=== PATIENT | female | born 1930 | race Caucasian/White ===

== ENCOUNTER 2017-10-18 16:35 | Inpatient (IN) | payer MEDICARE, OTHER ==
[~2017-10-18 16:35] MED LIST: ISOVUE-370 76%-LOCM 1 ML ONE
[2017-10-18] MEDS ORDERED: MEROPENEM 1 GM/50 ML 1 GM in Premix Bag 1 BAG IVPB SCH (17:30)
[2017-10-18 17:35] LABS: #Lymphocytes 1.2 thou/uL (1.20-3.40); #Monocytes 0.7 thou/uL (0.11-0.59); #Neutrophils 7.9 thou/uL (1.40-6.50); %Basophils 0.3 % (0.0-1.0); %Eosinophils 0.5 % (0.0-10.0); %Monocytes 6.9 % (0.0-10.0); Mean Platelet Volume 7.8 fL (7.4-10.4); Red Blood Cell (RBC) Count 3.81 mill/uL (4.20-5.40); White Blood Cell (WBC) Count 9.8 thou/uL (4.8-10.8)
[2017-10-18 17:43] LABS: PTT 29.4 SEC (22.9-36.1); Prothrombin Time 13.5 SEC (12.0-14.7)
[2017-10-18 17:53] LABS: Lactic Acid - Sepsis 1.5 mmol/L (0.5-2.2)
[2017-10-18 17:57] LABS: ALT (SGPT) 10 U/L (8-55); AST (SGOT) 15 U/L (5-34); Alkaline Phosphatase 87 U/L (40-150); Anion Gap 11 mmol/L (10-20); BUN (Urea Nitrogen) 26 mg/dL (9.8-20.1); Bilirubin, Total 0.3 mg/dL (0.2-1.2); CK (CPK) 47 U/L (29-168); Calc. Creatinine Clearance 0 mL/min (70-130); Calcium 9.1 mg/dL (7.8-10.44); Carbon Dioxide 27 mmol/L (23-31); Chloride 104 mmol/L (98-107); Estimated GFR-MDRD 77; Globulin 3.4 g/dL (2.4-3.5); Protein, Total 7.2 g/dL (6.0-8.3)
[2017-10-18 18:01] LABS: Troponin I 0.049 ng/mL (< 0.028)
[2017-10-18] MEDS ORDERED: diphenhydrAMINE 50 MG CAP ONE (18:02)
[2017-10-18] MEDS ORDERED: Water For Inject, Bacteriostat 30 ML ONE (18:02)
[2017-10-18] MEDS ORDERED: methylPREDNISolone Sod Succ/PF 125 MG/2 ML VIAL ONE (18:02)
[2017-10-18] MEDS ORDERED: Famotidine/PF 20 mg/2ml Vial ONE (18:02)
[2017-10-18] MEDS ORDERED: diphenhydrAMINE 50 MG/ML VIAL ONE (18:03)
[2017-10-18 18:05] LABS: Bilirubin Negative (Negative); Blood, Urine Large (Negative); Glucose, Urine (Dipstick) Negative (Negative); Ketone, Urine Negative (Negative); Nitrite Negative (Negative); Protein, Urine (Dipstick) 100 mg/dL (Neg-Trace); Urobilinogen 0.2 mg/dL (0.2-1.0)
[2017-10-18 18:11] LABS: Bacteria/HPF 1+ HPF (None Seen); Hyaline Casts/LPF 0-3 HYALINE CAST LPF (0-3 Hyaline); RBC/HPF GREATER THAN 50-TNTC HPF (0-3); Squamous Epithelial 0-3 HPF (0-3)
[2017-10-18] MEDS ORDERED: Acetaminophen 500 MG TAB ONE (19:14)
[2017-10-18] MEDS ORDERED: Acetaminophen 650 MG Suppository ONE (19:22)
[2017-10-18] MEDS ORDERED: Acetaminophen 325 MG TAB PO PRN (19:45)
[2017-10-18] MEDS ORDERED: Acetaminophen 650 MG Suppository PR PRN (19:45)
[2017-10-18] MEDS ORDERED: Ondansetron HCl/PF 4 MG/2 ML Vial IVP PRN (19:45)
[2017-10-18] MEDS ORDERED: metroNIDAZOLE 500 MG/100 ML BAG ONE (20:07)
--- NOTE | 2017-10-18 20:12 | RAD ---
PORTABLE UPRIGHT FRONTAL CHEST RADIOGRAPH 10/18/17 COMPARISON: 11/05/16. HISTORY: Choking on coffee a few days ago, productive cough. FINDINGS: No pneumothorax, pleural fluid, lobar consolidation, or alveolar edema. Heart and mediastinal contour s are stable. The lungs appear hyperinflated with diffuse increased linear interstitial density, unch anged. IMPRESSION: Chronic findings as detailed above. No lobar consolidation, or alveolar edema. POS: [facility]
[2017-10-18 20:27] LABS: Hematocrit 30.7 % (36.0-47.0)
[2017-10-18 20:50] LABS: Troponin I 0.055 ng/mL (< 0.028)
--- NOTE | 2017-10-18 21:19 | HP ---
PRIMARY CARE PHYSICIAN: Dr. Loki Solano. CHIEF COMPLAINT: Cough. HISTORY OF PRESENT ILLNESS: Ms. Adams is a pleasant 86-year-old lady who was seen at [facility] on 10/18/2017. The patient is able to provide most of the history. Additional history was obtained from discussion with the patient's daughter over the telephone, discussion with the emergency room physician and review of medical records. Ms. Adams was last hospitalized at this facility in 10/2016. At that time, she was a resident of [facility]. According to her daughter, she has been living at home over the last several months. Her daughter is the care provider. She has hospital bed at home. She appears to have been doing relatively well at home. Two days ago, she was trying to drink coffee through a straw, when she had an episode of choking. Since then, she has had a cough that is productive of light yellow sputum. There were no fevers at home, although the patient had a temperature of 102 degrees Fahrenheit in the emergency room. The patient denies any dysuria. She denies any chest pain. She reports cough. She denies any nausea or vomiting. She denies any abdominal pain. She denies any diarrhea. The patient's daughter reports that she has been wheezing occasionally. REVIEW OF SYSTEMS: The following complete review of systems was negative, unless otherwise mentioned in the HPI or below: Constitutional: Weight loss or gain, sense of well-being, ability to conduct usual activities, exercise tolerance. Skin/Breast: Rash, itching, changes in hair growth or loss, nail changes, breast lumps, tenderness, swelling, nipple discharge. Eyes: Vision, double vision, tearing, blind spots, pain. ENT/Mouth: Headaches (location, time of onset, duration, precipitating factors) , vertigo, lightheadedness, injury. Vision, double vision, tearing, blind spots , pain, nose bleeding, colds, obstruction, discharge, dental difficulties, gingival bleeding, dentures, neck stiffness, pain, tenderness, masses in thyroid or other areas. Cardiovascular: Precordial pain, substernal distress, palpitations, syncope, dyspnea on exertion, orthopnea, nocturnal paroxysmal dyspnea, edema, cyanosis, hypertension, heart murmurs, varicosities, phlebitis, claudication. Respiratory: Pain, shortness of breath, wheezing, stridor, cough, hemoptysis, fever or night sweats. Gastrointestinal: Poor appetite, dysphagia, indigestion, abdominal pain, heartburn, eructation, nausea, vomiting, hematemesis, jaundice, constipation, or diarrhea, abnormal stools (gillian-colored, tarry, bloody, greasy, foul smelling ), flatulence, hemorrhoids, recent changes in bowel habits. Genitourinary: Urgency, frequency, dysuria, nocturia, hematuria, polyuria, oliguria, unusual (or change in) color of urine, stones, hesitancy, change in size of stream, dribbling, acute retention or incontinence, libido, potency. Musculoskeletal: Pain, swelling, redness or heat of muscles or joints, limitation, of motion, muscular weakness, atrophy, cramps. Neurologic/Psychiatric: Convulsions, paralyses, tremor, incoordination, parasthesias, difficulties with memory of speech, sensory or motor disturbances , or muscular coordination (ataxia, tremor), emotional problems, anxiety, depression, previous psychiatric care, unusual perceptions, hallucinations. Allergy/Immunologic: Skin rash, anemia, bleeding tendency, polydipsia, polyuria , intolerance to heat or cold. PAST MEDICAL HISTORY: Significant for hypertension, asthma, depression, involuntary tremor, gastroesophageal reflux disease, irritable bowel syndrome, chronic back pain, gastritis, left hip fracture, atrial fibrillation and cachexia. PAST SURGICAL HISTORY: Significant for hysterectomy, back surgery, left hip surgery. PSYCHIATRIC HISTORY: Significant for anxiety and depression. FAMILY HISTORY: Her father had colon cancer. ALLERGIES: She is allergic to CODEINE, IODINE, LEVOFLOXACIN, MEPERIDINE, MORPHINE, PENICILLIN, SULFA and IV CONTRAST. She does not recall what the to PENICILLIN was. She reports that the allergy to CONTRAST was a headache. CURRENT MEDICATIONS: Abilify 15 mg daily, clonazepam 0.5 mg every 4 hours as needed, potassium chloride 10 mEq daily, Topamax 50 mg 2 times a day, paroxetine 30 mg daily, irbesartan 300 mg daily. CODE STATUS: I discussed her code status. She is DNR. PHYSICAL EXAMINATION: GENERAL: Ms. King is awake and alert, not in acute distress. She appears frail. VITAL SIGNS: Blood pressure is 149/73. Pulse is 114. She has a rectal temperature of 101 degrees Fahrenheit. She is breathing at rate of 20 and saturating 96% on 2 liters of oxygen. EYES: She is opening her left eye wider than her right. She reports that this is chronic. She also reports diminished vision in both eyes. No scleral icterus. No conjunctival pallor. ENT: Dry mucosal membranes, no oropharyngeal erythema or exudates. NECK: Supple, nontender, normal range of movement. Trachea is midline. RESPIRATORY: Accessory muscles of breathing are not active. Chest wall movements are symmetric bilaterally. LUNGS: Revealed occasional expiratory wheeze. CARDIOVASCULAR: S1 and S2 are heard, tachycardic and regular. Peripheral pulses are palpable. No carotid bruit, no pericardial rub. ABDOMEN: Soft, nontender, bowel sounds heard, no hepatomegaly, no splenomegaly. NEUROLOGIC: Cranial nerves II-XII are intact. Deep tendon reflexes are 2+. MUSCULOSKELETAL: Power is 4+/5 in all 4 extremities. She is keeping her ankles plantar flexed. SKIN: No rashes or subcutaneous nodules. LYMPHATIC: No cervical lymphadenopathy. PSYCHIATRIC: Normal mood, normal affect, the patient is oriented to person and place, not to time. LABORATORY DATA: Ms. Adams labs and investigations were reviewed. I reviewed her electrocardiogram, which shows normal sinus rhythm, no ST changes to suggest an acute coronary syndrome. I also reviewed her chest x-ray, which does not show any pulmonary infiltrates. She has a normal white count, normocytic anemia with hemoglobin 10.8, normal platelet count, INR 1.0, elevated D-dimer of 0.61, normal electrolytes, elevated blood urea nitrogen of 26, normal creatinine, normal lactic acid, normal liver profile, indeterminate troponin I of 0.049 and urinalysis positive for protein, blood, and leukocyte esterase. ASSESSMENT AND PLAN: Ms. Adams is a pleasant 86-year-old lady who was seen at [facility] on 10/18/2017. Her problem list includes: 1. Sepsis: Ms. Adams is presenting to the emergency room with sepsis, suspected sources of infection. Urinary tract infection and aspiration. Having said that, she was also noted to have blood in her diaper, colitis is a consideration as well. 2. Urinary tract infection. The patient has already received a dose of meropenem. Given her allergy profile, we will continue her on meropenem. Low risk of cross reactivity given her PENICILLIN allergy has been discussed with the patient and daughter. Both of them are agreeable to proceed. 3. Aspiration: Suspected, based on history. I will continue meropenem, add azithromycin. Given the possibility of bacteremia as well as contributed to her sepsis, we will continue vancomycin, which has already been started. We will follow blood cultures. 4. Gastrointestinal bleed: The patient had blood in her diaper. Gastroenterology Service has been consulted by emergency room physician. She is currently awaiting CT abdomen to rule out any acute intraabdominal processes. 5. Dehydration: The patient is clinically dehydrated: We will continue her on intravenous fluids. 6. Protein calorie malnutrition, moderate to severe: Consult dietitian. 7. Hypertension: Monitor vital signs, titrate antihypertensives as needed. 8. Involuntary tremor: Stable. 9. History of atrial fibrillation. The patient is currently in normal sinus rhythm. 10. Elevated D-dimer: She is currently awaiting CT angiogram of the chest to rule out pulmonary embolism. 11> Indeterminate troponin: likely due to sepsis, pt denies chest pain, will trend. Many thanks for allowing me to participate in your patient's care. Please feel free to contact me with any questions or concerns. LEVEL OF RISK: High. LEVEL OF COMPLEXITY: High. MTDD
[2017-10-18] MEDS: Azithromycin 500 MG in Sodium Chloride 0.9% 250 ML 250 ML IVPB SCH (22:06)
[2017-10-18] MEDS: Sodium Chloride 0.9% 1,000 ML IV SCH (22:06)
--- NOTE | 2017-10-18 23:18 | CT ---
CT OF ABDOMEN AND PELVIS 10/18/17 COMPARISON: None. HISTORY: Cough, GI bleeding, tremors. TECHNIQUE: Serial axial CT imaging is obtained at 5 mm intervals from lung bases through pubic symphysis with IV contrast. Coronal reformatted imaging obtained. FINDINGS: The imaged lung bases are unremarkable. The liver demonstrates a calcified lesion within the lateral aspect of the left lobe measuring approx imately 1.7 cm, nonspecific and unchanged when compared to study dating back to 06/06/15. The liver and gallbladder are otherwise grossly unremarkable. There is fluid within a mildly prominen t stomach. The gallbladder and pancreas are grossly unremarkable. No evidence for hydronephrosis is s een on either side. Bilateral adrenal glands are unremarkable as is the left kidney. The right kidney contains a large staghorn calculus involving upper mid and lower pole as well as favian al hilum, measuring up to 3.9 cm in transverse dimension x 4.9 cm in craniocaudal dimension. The patient's body habitus and the lack of oral contrast limit assessment of the bowel. The rectums is expanded and filled with stool, which suggest a degree of fecal impaction. There is si gnificant stool seen elsewhere within the colon, primarily the distal colon. No evidence for focal bowel inflammatory change or obstruction. Vascular structures of abdomen and pe lvis demonstrate extensive atherosclerotic calcification of the abdominal aorta and its branches. There is postoperative hardware associated with the proximal left femur, associated streak artifact l imiting detailed assessment. The bones are markedly demineralized. There is multilevel lower lumbar spine bilateral laminectomy change. Motion artifact limits assessment of the acetabulum/iliac bone on the right. IMPRESSION: 1. Mildly prominent fluid filled stomach. No evidence for small bowel obstruction. 2. The rectum is expanded and filled with stool, suggesting fecal impaction. 3. Atherosclerotic disease. 4. Large right renal staghorn calculus. POS: [facility]
--- NOTE | 2017-10-18 23:22 | CT ---
CT ANGIOGRAM OF THE CHEST 10/18/17 COMPARISON: 08/18/16 HISTORY: Productive cough, possible aspiration. TECHNIQUE: Serial axial CT imaging at 2.5 mm intervals from the thoracic inlet through the upper abdomen with IV contrast using a CT angiogram protocol. Coronal and oblique sagittal 3D reformatted imaging obtained . FINDINGS: Imaged portions of the great vessels demonstrate marked tortuosity. No axillary, mediastinal, or hilar lymphadenopathy. There is adequate opacification of the pulmonary arterial vasculature. There is no evidence for acute pulmonary embolism. No pneumothorax is evident o n either side. No evidence for air space disease or focal consolidation. Coronary arterial calcificat ion noted. No endobronchial lesion is evident. The bones are demineralized. There is an old proximal humeral fracture on the left. Age indeterminate anterior wedge compression fracture of T7 and T5 note d with severe vertebral body height loss. IMPRESSION: No evidence for pulmonary embolism. POS: [facility]
[2017-10-18 23:37] LABS: Troponin I 0.054 ng/mL (< 0.028)
[2017-10-19] MEDS: MEROPENEM 1 GM/50 ML 1 GM in Premix Bag 1 BAG IVPB SCH ×3 (03:29→17:45)
[2017-10-19 05:17] LABS: #Lymphocytes 1.1 thou/uL (1.20-3.40); #Monocytes 0.4 thou/uL (0.11-0.59); #Neutrophils 3.6 thou/uL (1.40-6.50); %Basophils 0.1 % (0.0-1.0); %Eosinophils 0.4 % (0.0-10.0); %Lymphocytes 21.5 % (21.0-51.0); Hematocrit 30.3 % (36.0-47.0); Mean Platelet Volume 7.8 fL (7.4-10.4); Red Blood Cell (RBC) Count 3.31 mill/uL (4.20-5.40)
[2017-10-19 06:20] LABS: Anion Gap 8 mmol/L (10-20); BUN (Urea Nitrogen) 22 mg/dL (9.8-20.1); Calc. Creatinine Clearance 39 mL/min (70-130); Calcium 8.5 mg/dL (7.8-10.44); Carbon Dioxide 25 mmol/L (23-31); Chloride 111 mmol/L (98-107); Estimated GFR-MDRD 88
[2017-10-19] MEDS ORDERED: FLU VACC TS2017-18 (>65YR) 0.5 ML SYRINGE IM ONE (09:00)
[2017-10-19] MEDS ORDERED: Enoxaparin Sodium 40 MG/0.4 ML SYRINGE SC SCH (09:00)
--- NOTE | 2017-10-19 10:08 | PDOC.PN ---
- Subjective Encounter Start Date: 10/19/17 Encounter Start Time: 07:40 Pt seen for followup re: sepsis. Cough+ Feels weak. - Objective Resuscitation Status: Resuscitation Status DNR:Do Not Resuscitate MAR Reviewed: Yes Vital Signs & Weight: Vital Signs (12 hours) Temp Pulse Resp BP Pulse Ox 10/19/17 03:38 98.6 F 68 16 146/74 H 10/18/17 23:57 97.6 F 73 18 135/62 98 Weight Weight 86 lb Result Diagrams: 10/19/17 04:23 10/19/17 04:23 EKG Reviewed by me: Yes (Tele: NSR) Phys Exam - Physical Examination appears malnourished HEENT: PERRLA, moist MMs, sclera anicteric, oral pharynx no lesions Neck: no nodes, no JVD, supple, full ROM Respiratory: clear to auscultation bilateral Cardiovascular: RRR, no rub Gastrointestinal: soft, non-tender, no distention, positive bowel sounds Musculoskeletal: pulses present Neurological: moves all 4 limbs Lymphatic: no nodes Psychiatric: normal affect Deviation from normal: Oriented to person and place, not to time Skin: no rash, normal turgor, cap refill <2 seconds Deviation from normal: Stg III sacral ulcer Dx/Plan (1) Sepsis Code(s): A41.9 - SEPSIS, UNSPECIFIED ORGANISM Status: Acute (2) UTI (urinary tract infection) Status: Acute (3) Aspiration pneumonia Code(s): J69.0 - PNEUMONITIS DUE TO INHALATION OF FOOD AND VOMIT Status: Acute (4) Rectal bleed Code(s): K62.5 - HEMORRHAGE OF ANUS AND RECTUM Status: Acute (5) Sacral decubitus ulcer, stage III Code(s): L89.153 - PRESSURE ULCER OF SACRAL REGION, STAGE 3 Status: Chronic (6) CAD (coronary artery disease) Code(s): I25.10 - ATHSCL HEART DISEASE OF [place] CORONARY ARTERY W/O ANG PCTRS Status: Chronic (7) Dementia Code(s): F03.90 - UNSPECIFIED DEMENTIA WITHOUT BEHAVIORAL DISTURBANCE Status: Chronic (8) Protein-calorie malnutrition, severe Code(s): E43 - UNSPECIFIED SEVERE PROTEIN-CALORIE MALNUTRITION Status: Chronic (9) Paroxysmal atrial fibrillation Code(s): I48.0 - PAROXYSMAL ATRIAL FIBRILLATION Status: Resolved - Plan continue antibiotics, PT/OT, speech therapy, out of bed/ambulate, DVT proph w/ SCDs * . Continue IV meropenem, IV vancomycin and IV azithromycin. Follow cultures. Hemoglobin stable. Diet consistency as per speech therapy. Review of Systems - Review of Systems Constitutional: Weakness. negative: Fever, Chills, Sweats, Malaise Respiratory: Cough, Sputum. negative: Dry, Shortness of Breath, Hemoptysis, SOB with Excertion, Pleuritic Pain, Wheezing Cardiovascular: negative: Chest Pain, Palpitations, Orthopnea, Paroxysmal Noc. Dyspnea, Edema, Light Headedness Gastrointestinal: Hematochezia. negative: Nausea, Vomiting, Abdominal Pain, Diarrhea, Constipation, Melena Genitourinary: negative: Dysuria, Frequency, Incontinence, Hematuria, Retention - Medications/Allergies Allergies/Adverse Reactions: Allergies Allergy/AdvReac Type Severity Reaction Status Date / Time codeine Allergy Verified 10/18/17 22:06 iodine Allergy Verified 10/18/17 22:06 levofloxacin Allergy Verified 10/18/17 22:06 meperidine HCl [From Demerol] Allergy Verified 10/18/17 22:06 morphine Allergy Verified 10/18/17 22:06 Penicillins Allergy Verified 10/18/17 22:06 Sulfa (Sulfonamide Allergy Verified 10/18/17 22:06 Antibiotics) Medications: Current Medications Acetaminophen (Tylenol) 650 mg PO Q4H PRN PRN Reason: Headache/Fever or Pain Acetaminophen (Tylenol) 650 mg [place] Q4H PRN PRN Reason: Headache/Fever or Pain Meropenem 1 gm/ Device 50 mls @ 100 mls/hr IVPB 0200,1000,1800 [facility] Last Admin: 10/19/17 09:00 Dose: 50 mls Azithromycin 500 mg/ Sodium (Chloride) 250 mls @ 250 mls/hr IVPB 2030 [facility] Last Admin: 10/18/17 22:06 Dose: 250 mls Vancomycin HCl 500 mg/ Sodium (Chloride) 100 mls @ 200 mls/hr IVPB 2000 [facility] Sodium Chloride (Normal Saline 0.9%) 1,000 mls @ 50 mls/hr IV .Q20H [facility] Last Admin: 10/18/17 22:06 Dose: 1,000 mls Miscellaneous Medication (Pharmacy To Dose) 1 each IVPB PRN PRN PRN Reason: Pharmacy to dose Ondansetron HCl (Zofran) 4 mg IVP Q6H PRN PRN Reason: Nausea/Vomiting
[2017-10-19] MEDS: Sodium Chloride 0.9% 1,000 ML IV SCH (17:37)
[2017-10-19] MEDS: Vancomycin HCl 500 MG in Sodium Chloride 0.9% 100 ML IVPB SCH (20:28)
[2017-10-19] MEDS: Azithromycin 500 MG in Sodium Chloride 0.9% 250 ML 250 ML IVPB SCH (20:34)
--- NOTE | 2017-10-20 00:55 | CON ---
DATE OF CONSULTATION: 10/19/2017 REFERRING PHYSICIAN: Dr. Linden Maher. REASON FOR CONSULTATION: Hematochezia. HISTORY OF PRESENT ILLNESS: Ms. Zandra Adams is a very pleasant 86-year-old female hospi talized by Dr. Linden Maher for what appears to be aspiration. Apparently, she was drinking some coff ee at home and she started coughing and choking. The patient also had some yellowish sputum subseque ntly. There were no history of fever or chills. The patient had no similar episodes. The patient h as no dyspnea, orthopnea or PND. She had no similar episodes of in the past. The patient was admitt ed to the hospital because of what appears to be as patient had sepsis. She also appears to have UTI . She is on IV antibiotics at the present time. The patient had an episode of hematochezia last nig ht as per the nurses. The bleeding appears very mild. Today, she has no recurrence of bleeding. He r blood count really did not drop down that much, although she has a history of hematochezia. On adm ission, the WBC was 9800, hemoglobin 10.8 and hematocrit 34. Today, the hemoglobin is 9.4, hematocri t 30.3. The patient denies any abdominal pain. No nausea, no vomiting. There is no prior history o f GI bleeding. The patient does not recall having any colonoscopy or any GI workup in the past. The re is no family available at the present time. As per the admitting history and physical, the patien t is DNR. At the present time, the patient denies any abdominal pain, any dysphagia or odynophagia. No history of heartburn. She has no other relevant history. ALLERGIES: Numerous allergies, which from the admitting history and physical by Dr. Linden Maher. Sh e is allergic to CODEINE, IODINE, LEVOFLOXACIN, MEPERIDINE. Allergic also to PENICILLIN, MORPHINE, S ULFA and IV CONTRAST. SOCIAL HISTORY: There is no history of smoking or any alcohol intake. PAST MEDICAL ILLNESSES: 1. Hypertension. 2. Asthma. 3. Depression. 4. Involuntary tremors. 5. Gastroesophageal reflux disease. 6. IBS. 7. Chronic back pain. 8. Gastritis. 9. Left hip fracture. 10. Atrial fibrillation. 11. Cachexia. PAST SURGICAL HISTORY: Hysterectomy, back surgery and left hip surgery. FAMILY HISTORY: Father had colon cancer. MEDICATIONS: List reviewed, which include Abilify, clonazepam, potassium chloride, Topamax, Paxil an d irbesartan 300 mg once a day. REVIEW OF SYSTEMS: Central Nervous System: No history of TIA, no chronic headache, no dizziness, no syncope. Respiratory System: Recent coughing, choking and spitting up yellowish sputum. No dyspne a, no hemoptysis. Cardiovascular System: No chest pain, no palpitation, no dyspnea, orthopnea or PN D. Gastrointestinal: No abdominal pain, nausea or vomiting. Genitourinary: No dysuria, hematuria or frequent urination. Musculoskeletal: She has some back pain and arthralgias. Neuropsychiatric: No depression, but does have a history of anxiety. PHYSICAL EXAMINATION: GENERAL: Reveals a very fragile-looking, elderly white female, who appears very comfortable, but she has severe tremors in the upper extremities. She also has tremors of the head and neck. She appear s comfortable. VITAL SIGNS: Stable. Temperature 98.4 degrees Fahrenheit, pulse is 79 and blood pressure 156/66. HEENT: Conjunctivae clear. NECK: Supple. No adenitis or thyromegaly noted. CARDIOVASCULAR SYSTEM: First and second heart sounds are normal. LUNGS: Clear to auscultation. ABDOMEN: Soft to palpate. Abdomen is nondistended. Abdomen is nontender. There is no organomegaly or masses. EXTREMITIES: Reveal no edema. LABORATORY DATA: Shows mild anemia without much drop in blood count after hematochezia. The hemoglo bin was 10.2 dropping to 9.4, hematocrit 30.3, MCV 91.4, platelet count 199,000, polymorphs 71 and ly mphocytes 21. Serum chemistries: Sodium 140, potassium 4.1, chloride 111, bicarbonate 25, BUN is 22 , creatinine 0.64, glucose 118 and calcium 8.5. She had a chest x-ray, inflated lungs lopez with di ffuse appears more chronic in nature. CLINICAL IMPRESSION: 1. Hematochezia with no active bleeding seen at the present time. She had one episode of bleeding y esterday. She has had no more bleeding. Her abdomen is very benign. Unfortunately, no family membe r available to see whether they want to have any invasive procedures. The patient actually wants me to talk to the family before she decides on treatment. In the meantime, I would recommend serial hem oglobin and hematocrit. 2. Transfuse p.r.n. 3. We will discuss with family and decide whether they want to proceed with colonoscopy.
[2017-10-20] MEDS: MEROPENEM 1 GM/50 ML 1 GM in Premix Bag 1 BAG IVPB SCH ×3 (01:28→17:18)
[2017-10-20 05:17] LABS: #Basophils 0.1 thou/uL (0.0-0.2); #Eosinphils 0.2 thou/uL (0.0-0.7); #Lymphocytes 2.2 thou/uL (1.20-3.40); #Monocytes 0.7 thou/uL (0.11-0.59); #Neutrophils 4.3 thou/uL (1.40-6.50); %Basophils 0.7 % (0.0-1.0); %Eosinophils 2.8 % (0.0-10.0); %Lymphocytes 30.1 % (21.0-51.0); Hematocrit 30.3 % (36.0-47.0); Mean Platelet Volume 7.8 fL (7.4-10.4); Red Blood Cell (RBC) Count 3.33 mill/uL (4.20-5.40); White Blood Cell (WBC) Count 7.4 thou/uL (4.8-10.8)
[2017-10-20 05:34] LABS: Anion Gap 8 mmol/L (10-20); BUN (Urea Nitrogen) 21 mg/dL (9.8-20.1); Calc. Creatinine Clearance 43 mL/min (70-130); Calcium 8.1 mg/dL (7.8-10.44); Carbon Dioxide 29 mmol/L (23-31); Chloride 108 mmol/L (98-107); Estimated GFR-MDRD Greater than 90
--- NOTE | 2017-10-20 10:07 | PDOC.PN ---
- Subjective Encounter Start Date: 10/20/17 Encounter Start Time: 07:20 Pt seen for followup re: Proteus mirabilis UTI. Denies chest pain or shortness fo breath. feels better. - Objective Resuscitation Status: Resuscitation Status DNR:Do Not Resuscitate MAR Reviewed: Yes Vital Signs & Weight: Vital Signs (12 hours) Temp Pulse Resp BP Pulse Ox 10/20/17 04:00 99.0 F 75 18 151/70 H 99 Weight Admit Weight 86 lb Weight 86 lb I&O: 10/19/17 10/20/17 10/21/17 06:59 06:59 06:59 Intake Total 1546 Balance 1546 Result Diagrams: 10/20/17 04:30 10/20/17 04:30 EKG Reviewed by me: Yes (Tele: NSR) Phys Exam - Physical Examination Constitutional: NAD HEENT: moist MMs, oral pharynx no lesions Neck: supple Respiratory: no wheezing, no rales, no rhonchi, clear to auscultation bilateral Cardiovascular: RRR, no rub Gastrointestinal: soft, non-tender, no distention, positive bowel sounds Musculoskeletal: pulses present Neurological: moves all 4 limbs Tremor Lymphatic: no nodes Psychiatric: normal affect Deviation from normal: Oriented to person and place, not to time Skin: no rash, normal turgor, cap refill <2 seconds Deviation from normal: Stg III sacral decub ulcer Dx/Plan (1) Urinary tract infection due to Proteus Code(s): N39.0 - URINARY TRACT INFECTION, SITE NOT SPECIFIED; B96.4 - PROTEUS ( MIRABILIS) (MORGANII) CAUSING DIS CLASSD ELSWHR Status: Acute (2) Aspiration pneumonia Code(s): J69.0 - PNEUMONITIS DUE TO INHALATION OF FOOD AND VOMIT Status: Suspected (3) Rectal bleed Code(s): K62.5 - HEMORRHAGE OF ANUS AND RECTUM Status: Acute (4) Sacral decubitus ulcer, stage III Code(s): L89.153 - PRESSURE ULCER OF SACRAL REGION, STAGE 3 Status: Chronic (5) CAD (coronary artery disease) Code(s): I25.10 - ATHSCL HEART DISEASE OF [place] CORONARY ARTERY W/O ANG PCTRS Status: Chronic (6) Dementia Code(s): F03.90 - UNSPECIFIED DEMENTIA WITHOUT BEHAVIORAL DISTURBANCE Status: Chronic (7) Protein-calorie malnutrition, severe Code(s): E43 - UNSPECIFIED SEVERE PROTEIN-CALORIE MALNUTRITION Status: Chronic (8) Paroxysmal atrial fibrillation Code(s): I48.0 - PAROXYSMAL ATRIAL FIBRILLATION Status: Resolved (9) Sepsis Code(s): A41.9 - SEPSIS, UNSPECIFIED ORGANISM Status: Resolved - Plan continue antibiotics, PT/OT, speech therapy, out of bed/ambulate * . Continue meropenem for now, given pt's drug allergies. Monitor vital signs, titrate antihypertensives as needed. Appreciate GI service input. Monitor hemoglobin. Review of Systems - Review of Systems Constitutional: negative: Fever, Chills, Sweats, Weakness, Malaise Respiratory: negative: Cough, Dry, Shortness of Breath, Hemoptysis, SOB with Excertion, Pleuritic Pain, Sputum, Wheezing Cardiovascular: negative: Chest Pain, Palpitations, Orthopnea, Paroxysmal Noc. Dyspnea, Edema, Light Headedness Gastrointestinal: negative: Nausea, Vomiting, Abdominal Pain, Diarrhea, Constipation, Melena, Hematochezia Genitourinary: negative: Dysuria, Frequency, Incontinence, Hematuria, Retention - Medications/Allergies Allergies/Adverse Reactions: Allergies Allergy/AdvReac Type Severity Reaction Status Date / Time codeine Allergy Verified 10/18/17 22:06 iodine Allergy Verified 10/18/17 22:06 levofloxacin Allergy Verified 10/18/17 22:06 meperidine HCl [From Demerol] Allergy Verified 10/18/17 22:06 morphine Allergy Verified 10/18/17 22:06 Penicillins Allergy Verified 10/18/17 22:06 Sulfa (Sulfonamide Allergy Verified 10/18/17 22:06 Antibiotics) Medications: Current Medications Acetaminophen (Tylenol) 650 mg PO Q4H PRN PRN Reason: Headache/Fever or Pain Acetaminophen (Tylenol) 650 mg [place] Q4H PRN PRN Reason: Headache/Fever or Pain Meropenem 1 gm/ Device 50 mls @ 100 mls/hr IVPB 0200,1000,1800 [facility] Last Admin: 10/20/17 09:15 Dose: 50 mls Azithromycin 500 mg/ Sodium (Chloride) 250 mls @ 250 mls/hr IVPB 2030 [facility] Last Admin: 10/19/17 20:34 Dose: 250 mls Vancomycin HCl 500 mg/ Sodium (Chloride) 100 mls @ 200 mls/hr IVPB 2000 [facility] Last Admin: 10/19/17 20:28 Dose: 100 mls Sodium Chloride (Normal Saline 0.9%) 1,000 mls @ 50 mls/hr IV .Q20H [facility] Last Admin: 10/19/17 17:37 Dose: 1,000 mls Miscellaneous Medication (Pharmacy To Dose) 1 each IVPB PRN PRN PRN Reason: Pharmacy to dose Ondansetron HCl (Zofran) 4 mg IVP Q6H PRN PRN Reason: Nausea/Vomiting
[2017-10-20] MEDS: Sodium Chloride 0.9% 1,000 ML IV SCH (11:42)
[2017-10-20] MEDS ORDERED: ALPRAZolam 0.25 MG TAB PO SCH (14:30)
--- NOTE | 2017-10-20 15:37 | PRG ---
DATE OF SERVICE: 10/20/2017 HOSPITAL VISIT NOTE SUBJECTIVE: This is an 86-year-old female seen because of hematochezia. The patient had a stool this morning. As per the nurses, the stool was firm. There is a small amount of blood seen o n the side of stool. The patient has had hemorrhoids. She denies abdominal pain, nausea or vomiting . At the time during the rectal exam, she had a very large soft stool and the stool was actually daniel e of any blood. PHYSICAL EXAMINATION: VITAL SIGNS: Afebrile, pulse 99, blood pressure 176/76. CARDIOVASCULAR: Lungs within normal limits. ABDOMEN: Soft to palpate. No organomegaly. No tenderness. No masses. LABORATORY DATA: From today, no drop in hemoglobin; it remains pretty stable around 9.7-9.4, hematoc rit 30.3. CLINICAL IMPRESSION: Rectal bleeding, mostly hemorrhoidal as the patient had a large stool this morn ing and the stool actually has no blood. Unfortunately, there is no family available to talk to them . If I talk to family, will decide if they want to proceed with any further studies.
[2017-10-20 19:37] LABS: Vancomycin, Trough 4.2 ug/mL
[2017-10-20] MEDS: Vancomycin HCl 500 MG in Sodium Chloride 0.9% 100 ML IVPB SCH (20:29)
[2017-10-20] MEDS: Azithromycin 500 MG in Sodium Chloride 0.9% 250 ML 250 ML IVPB SCH (21:29)
[2017-10-21] MEDS: MEROPENEM 1 GM/50 ML 1 GM in Premix Bag 1 BAG IVPB SCH ×3 (01:32→18:54)
[2017-10-21 05:48] LABS: #Eosinphils 0.2 thou/uL (0.0-0.7); #Lymphocytes 1.8 thou/uL (1.20-3.40); #Monocytes 0.5 thou/uL (0.11-0.59); #Neutrophils 4.5 thou/uL (1.40-6.50); %Basophils 0.5 % (0.0-1.0); %Eosinophils 2.8 % (0.0-10.0); %Lymphocytes 25.2 % (21.0-51.0); %Monocytes 7.6 % (0.0-10.0); Hematocrit 31.5 % (36.0-47.0); Mean Platelet Volume 8.6 fL (7.4-10.4); Red Blood Cell (RBC) Count 3.51 mill/uL (4.20-5.40)
[2017-10-21 06:10] LABS: Anion Gap 10 mmol/L (10-20); BUN (Urea Nitrogen) 11 mg/dL (9.8-20.1); Calc. Creatinine Clearance 48 mL/min (70-130); Calcium 8.3 mg/dL (7.8-10.44); Carbon Dioxide 29 mmol/L (23-31); Chloride 105 mmol/L (98-107); Estimated GFR-MDRD Greater than 90
[2017-10-21] MEDS: Sodium Chloride 0.9% 1,000 ML IV SCH (07:46)
[2017-10-21] MEDS ORDERED: Vancomycin HCl 500 MG in Sodium Chloride 0.9% 100 ML IVPB SCH (08:00)
[2017-10-21] MEDS ORDERED: hydrALAZINE 20 MG/ML VIAL SLOW IVP PRN (09:38)
[2017-10-21] MEDS ORDERED: PARoxetine 20 MG TAB PO SCH (09:45)
[2017-10-21] MEDS ORDERED: Potassium Chloride 10 MEQ TAB PO SCH (09:45)
[2017-10-21] MEDS: Topiramate 25 MG TAB PO SCH ×2 (09:54→22:36)
[2017-10-21] MEDS: Aripiprazole 15 MG TAB PO SCH (09:56)
--- NOTE | 2017-10-21 13:29 | PDOC.PN ---
- Subjective Encounter Start Date: 10/21/17 Encounter Start Time: 08:40 Pt seen for followup re: UTI. Denies chest pain, shortness of berath, fevers or chills. says she's "falling down", confused. - Objective Resuscitation Status: Resuscitation Status DNR:Do Not Resuscitate MAR Reviewed: Yes Vital Signs & Weight: Vital Signs (12 hours) Temp Pulse Resp BP Pulse Ox 10/21/17 12:46 80 10/21/17 12:45 98.5 F 109 H 24 H 188/88 H 95 10/21/17 08:05 98.2 F 80 20 98 10/21/17 08:00 98.2 F 80 20 169/80 H 98 10/21/17 06:00 99.1 F 86 18 155/78 H 98 Weight Admit Weight 86 lb Weight 99 lb I&O: 10/20/17 10/21/17 10/22/17 06:59 06:59 06:59 Intake Total 1546 1060 Balance 1546 1060 Result Diagrams: 10/21/17 05:06 10/21/17 05:06 EKG Reviewed by me: Yes (Tele: NSR) Phys Exam - Physical Examination Constitutional: NAD HEENT: moist MMs, oral pharynx no lesions Neck: supple Respiratory: clear to auscultation bilateral Cardiovascular: RRR Gastrointestinal: soft Musculoskeletal: pulses present Neurological: moves all 4 limbs Psychiatric: normal affect Skin: no rash Dx/Plan (1) Urinary tract infection due to Proteus Code(s): N39.0 - URINARY TRACT INFECTION, SITE NOT SPECIFIED; B96.4 - PROTEUS ( MIRABILIS) (MORGANII) CAUSING DIS CLASSD ELSWHR Status: Acute (2) Aspiration pneumonia Code(s): J69.0 - PNEUMONITIS DUE TO INHALATION OF FOOD AND VOMIT Status: Suspected (3) Rectal bleed Code(s): K62.5 - HEMORRHAGE OF ANUS AND RECTUM Status: Acute (4) Sacral decubitus ulcer, stage III Code(s): L89.153 - PRESSURE ULCER OF SACRAL REGION, STAGE 3 Status: Chronic (5) CAD (coronary artery disease) Code(s): I25.10 - ATHSCL HEART DISEASE OF [place] CORONARY ARTERY W/O ANG PCTRS Status: Chronic (6) Dementia Code(s): F03.90 - UNSPECIFIED DEMENTIA WITHOUT BEHAVIORAL DISTURBANCE Status: Chronic (7) Protein-calorie malnutrition, severe Code(s): E43 - UNSPECIFIED SEVERE PROTEIN-CALORIE MALNUTRITION Status: Chronic (8) Paroxysmal atrial fibrillation Code(s): I48.0 - PAROXYSMAL ATRIAL FIBRILLATION Status: Resolved (9) Sepsis Code(s): A41.9 - SEPSIS, UNSPECIFIED ORGANISM Status: Resolved - Plan continue antibiotics, PT/OT, speech therapy, out of bed/ambulate, DVT proph w/ SCDs * . Continue IV meropenem for now, given pt's allergy list. Monitor vital signs,titrate antihypertensives as needed. Transfer to medical floor. Review of Systems - Review of Systems Respiratory: negative: Cough, Dry, Shortness of Breath, Hemoptysis, SOB with Excertion, Pleuritic Pain, Sputum, Wheezing Cardiovascular: negative: Chest Pain, Palpitations, Orthopnea, Paroxysmal Noc. Dyspnea, Edema, Light Headedness - Medications/Allergies Allergies/Adverse Reactions: Allergies Allergy/AdvReac Type Severity Reaction Status Date / Time codeine Allergy Verified 10/18/17 22:06 iodine Allergy Verified 10/18/17 22:06 levofloxacin Allergy Verified 10/18/17 22:06 meperidine HCl [From Demerol] Allergy Verified 10/18/17 22:06 morphine Allergy Verified 10/18/17 22:06 Penicillins Allergy Verified 10/18/17 22:06 Sulfa (Sulfonamide Allergy Verified 10/18/17 22:06 Antibiotics) Medications: Current Medications Acetaminophen (Tylenol) 650 mg PO Q4H PRN PRN Reason: Headache/Fever or Pain Acetaminophen (Tylenol) 650 mg [place] Q4H PRN PRN Reason: Headache/Fever or Pain Aripiprazole (Abilify) 15 mg PO DAILY [facility] Last Admin: 10/21/17 09:56 Dose: 15 mg Clonazepam (Klonopin) 0.5 mg PO Q4H PRN PRN Reason: Anxiety Hydralazine HCl (Apresoline) 10 mg SLOW IVP Q6H PRN PRN Reason: SBP Greater Than 170 Last Admin: 10/21/17 12:46 Dose: 10 mg Meropenem 1 gm/ Device 50 mls @ 100 mls/hr IVPB 0200,1000,1800 [facility] Last Admin: 10/21/17 09:50 Dose: 50 mls Azithromycin 500 mg/ Sodium (Chloride) 250 mls @ 250 mls/hr IVPB 2030 [facility] Last Admin: 10/20/17 21:29 Dose: 250 mls Sodium Chloride (Normal Saline 0.9%) 1,000 mls @ 50 mls/hr IV .Q20H [facility] Last Admin: 10/21/17 07:46 Dose: 1,000 mls Vancomycin HCl 500 mg/ Sodium (Chloride) 100 mls @ 200 mls/hr IVPB 0800,1999 [facility] Last Admin: 10/21/17 07:45 Dose: 100 mls Irbesartan (Avapro) 300 mg PO DAILY [facility] Miscellaneous Medication (Pharmacy To Dose) 1 each IVPB PRN PRN PRN Reason: Pharmacy to dose Ondansetron HCl (Zofran) 4 mg IVP Q6H PRN PRN Reason: Nausea/Vomiting Paroxetine HCl (Paxil) 30 mg PO DAILY [facility] Potassium Chloride (Klor-Con) 10 meq PO DAILY [facility] Topiramate (Topamax) 50 mg PO BID [facility] Last Admin: 10/21/17 09:54 Dose: 50 mg
[2017-10-21] MEDS ORDERED: Haloperidol Lactate 5 MG/ML VIAL IM SCH (13:45)
[2017-10-21] MEDS: clonazePAM 0.5 MG TAB PO PRN (14:20)
[2017-10-21] MEDS ORDERED: Lorazepam 2 MG/ML VIAL SLOW IVP SCH (15:00)
[2017-10-21] MEDS ORDERED: clonazePAM 0.5 MG TAB PO SCH (15:00)
[2017-10-21] MEDS: Azithromycin 500 MG in Sodium Chloride 0.9% 250 ML 250 ML IVPB SCH (22:35)
[2017-10-22] MEDS: MEROPENEM 1 GM/50 ML 1 GM in Premix Bag 1 BAG IVPB SCH ×3 (02:50→17:12)
[2017-10-22] MEDS: Sodium Chloride 0.9% 1,000 ML IV SCH ×3 (04:15→05:34)
[2017-10-22 08:15] LABS: Vancomycin, Trough 5.3 ug/mL
[2017-10-22] MEDS ORDERED: Potassium Chloride 10 MEQ TAB PO SCH (09:00)
[2017-10-22] MEDS: Aripiprazole 15 MG TAB PO SCH (10:12)
[2017-10-22] MEDS: PARoxetine 20 MG TAB PO SCH (10:13)
[2017-10-22] MEDS: Topiramate 25 MG TAB PO SCH ×2 (10:13→21:06)
[2017-10-22 12:41] VITALS: BMI 19.3
[2017-10-22] MEDS: clonazePAM 0.5 MG TAB PO PRN (17:23)
--- NOTE | 2017-10-22 18:01 | PDOC.PN ---
- Subjective Encounter Start Date: 10/22/17 Encounter Start Time: 09:20 Pt seen for followup re: UTI. Feels better. No chest pain, shortness of breath. - Objective Resuscitation Status: Resuscitation Status DNR:Do Not Resuscitate MAR Reviewed: Yes Vital Signs & Weight: Vital Signs (12 hours) Temp Pulse Resp BP Pulse Ox 10/22/17 17:14 99 F 86 16 171/74 H 98 10/22/17 11:50 98.3 F 85 16 133/69 97 10/22/17 08:24 98.3 F 82 16 154/75 H 98 10/22/17 08:00 98.3 F 85 16 97 Weight Admit Weight 86 lb Weight 99 lb I&O: 10/21/17 10/22/17 10/23/17 06:59 06:59 06:59 Intake Total 1060 Balance 1060 Result Diagrams: 10/21/17 05:06 10/21/17 05:06 Additional Labs: Accuchecks 10/22/17 04:27 POC Glucose 91 Phys Exam - Physical Examination Constitutional: NAD HEENT: moist MMs Neck: supple Respiratory: clear to auscultation bilateral Cardiovascular: RRR Gastrointestinal: soft Musculoskeletal: pulses present Tremor+ Psychiatric: normal affect Skin: no rash Dx/Plan (1) Urinary tract infection due to Proteus Code(s): N39.0 - URINARY TRACT INFECTION, SITE NOT SPECIFIED; B96.4 - PROTEUS ( MIRABILIS) (MORGANII) CAUSING DIS CLASSD ELSWHR Status: Acute (2) Aspiration pneumonia Code(s): J69.0 - PNEUMONITIS DUE TO INHALATION OF FOOD AND VOMIT Status: Suspected (3) Rectal bleed Code(s): K62.5 - HEMORRHAGE OF ANUS AND RECTUM Status: Acute (4) Sacral decubitus ulcer, stage III Code(s): L89.153 - PRESSURE ULCER OF SACRAL REGION, STAGE 3 Status: Chronic (5) CAD (coronary artery disease) Code(s): I25.10 - ATHSCL HEART DISEASE OF [place] CORONARY ARTERY W/O ANG PCTRS Status: Chronic (6) Dementia Code(s): F03.90 - UNSPECIFIED DEMENTIA WITHOUT BEHAVIORAL DISTURBANCE Status: Chronic (7) Protein-calorie malnutrition, severe Code(s): E43 - UNSPECIFIED SEVERE PROTEIN-CALORIE MALNUTRITION Status: Chronic (8) Sepsis Code(s): A41.9 - SEPSIS, UNSPECIFIED ORGANISM Status: Resolved - Plan PT/OT, out of bed/ambulate, DVT proph w/SCDs * . Discontinue antibiotics today, observe. Check hemoglobin tomorrow. Review of Systems - Review of Systems Cardiovascular: negative: Chest Pain, Palpitations, Orthopnea, Paroxysmal Noc. Dyspnea, Edema, Light Headedness Gastrointestinal: negative: Nausea, Vomiting, Abdominal Pain, Diarrhea, Constipation, Melena, Hematochezia - Medications/Allergies Allergies/Adverse Reactions: Allergies Allergy/AdvReac Type Severity Reaction Status Date / Time codeine Allergy Verified 10/18/17 22:06 iodine Allergy Verified 10/18/17 22:06 levofloxacin Allergy Verified 10/18/17 22:06 meperidine HCl [From Demerol] Allergy Verified 10/18/17 22:06 morphine Allergy Verified 10/18/17 22:06 Penicillins Allergy Verified 10/18/17 22:06 Sulfa (Sulfonamide Allergy Verified 10/18/17 22:06 Antibiotics) Medications: Current Medications Acetaminophen (Tylenol) 650 mg PO Q4H PRN PRN Reason: Headache/Fever or Pain Acetaminophen (Tylenol) 650 mg [place] Q4H PRN PRN Reason: Headache/Fever or Pain Aripiprazole (Abilify) 15 mg PO DAILY [facility] Last Admin: 10/22/17 10:12 Dose: 15 mg Clonazepam (Klonopin) 0.5 mg PO Q4H PRN PRN Reason: Anxiety Last Admin: 10/22/17 17:23 Dose: 0.5 mg Hydralazine HCl (Apresoline) 10 mg SLOW IVP Q6H PRN PRN Reason: SBP Greater Than 170 Last Admin: 10/21/17 12:46 Dose: 10 mg Meropenem 1 gm/ Device 50 mls @ 100 mls/hr IVPB 0200,1000,1800 [facility] Last Admin: 10/22/17 17:12 Dose: 50 mls Azithromycin 500 mg/ Sodium (Chloride) 250 mls @ 250 mls/hr IVPB 2030 [facility] Last Admin: 10/21/17 22:35 Dose: 250 mls Sodium Chloride (Normal Saline 0.9%) 1,000 mls @ 50 mls/hr IV .Q20H [facility] Last Admin: 10/22/17 05:34 Dose: 1,000 mls Irbesartan (Avapro) 300 mg PO DAILY [facility] Last Admin: 10/22/17 10:12 Dose: 300 mg Miscellaneous Medication (Pharmacy To Dose) 1 each IVPB PRN PRN PRN Reason: Pharmacy to dose Ondansetron HCl (Zofran) 4 mg IVP Q6H PRN PRN Reason: Nausea/Vomiting Paroxetine HCl (Paxil) 30 mg PO DAILY [facility] Last Admin: 10/22/17 10:13 Dose: 30 mg Potassium Chloride (Klor-Con) 10 meq PO DAILY [facility] Last Admin: 10/22/17 10:12 Dose: 10 meq Topiramate (Topamax) 50 mg PO BID [facility] Last Admin: 10/22/17 10:13 Dose: 50 mg
[2017-10-23 04:34] LABS: #Eosinphils 0.3 thou/uL (0.0-0.7); #Lymphocytes 2.1 thou/uL (1.20-3.40); #Monocytes 0.6 thou/uL (0.11-0.59); #Neutrophils 5.2 thou/uL (1.40-6.50); %Basophils 0.4 % (0.0-1.0); %Eosinophils 3.7 % (0.0-10.0); %Lymphocytes 25.4 % (21.0-51.0); %Monocytes 7.2 % (0.0-10.0); Hematocrit 30.3 % (36.0-47.0); Mean Platelet Volume 8.9 fL (7.4-10.4); Red Blood Cell (RBC) Count 3.35 mill/uL (4.20-5.40); White Blood Cell (WBC) Count 8.2 thou/uL (4.8-10.8)
[2017-10-23 04:54] LABS: Anion Gap 9 mmol/L (10-20); BUN (Urea Nitrogen) 12 mg/dL (9.8-20.1); Calc. Creatinine Clearance 52 mL/min (70-130); Calcium 8.2 mg/dL (7.8-10.44); Carbon Dioxide 28 mmol/L (23-31); Chloride 105 mmol/L (98-107); Estimated GFR-MDRD Greater than 90
[2017-10-23] MEDS: Aripiprazole 15 MG TAB PO SCH (09:56)
[2017-10-23] MEDS: PARoxetine 20 MG TAB PO SCH (09:57)
[2017-10-23] MEDS: Topiramate 25 MG TAB PO SCH ×2 (09:58→21:52)
--- NOTE | 2017-10-23 15:22 | PDOC.PN ---
- Subjective Encounter Start Date: 10/23/17 Encounter Start Time: 10:00 Pt seen for followup re: UTI. Denies chest pain, shortness of breath. - Objective Resuscitation Status: Resuscitation Status DNR:Do Not Resuscitate MAR Reviewed: Yes Vital Signs & Weight: Vital Signs (12 hours) Temp Pulse Resp BP Pulse Ox 10/23/17 08:03 98.4 F 69 20 161/72 H 100 10/23/17 08:00 98.4 F 69 19 161/72 H 100 10/23/17 04:00 98.4 F 64 18 166/74 H 98 Weight Admit Weight 86 lb Weight 99 lb Result Diagrams: 10/23/17 03:24 10/23/17 03:24 Phys Exam - Physical Examination Constitutional: NAD HEENT: moist MMs, oral pharynx no lesions Neck: supple Respiratory: clear to auscultation bilateral Cardiovascular: RRR Gastrointestinal: soft Musculoskeletal: no edema tremor Psychiatric: normal affect Skin: no rash Dx/Plan (1) Urinary tract infection due to Proteus Code(s): N39.0 - URINARY TRACT INFECTION, SITE NOT SPECIFIED; B96.4 - PROTEUS ( MIRABILIS) (MORGANII) CAUSING DIS CLASSD ELSWHR Status: Acute (2) Aspiration pneumonia Code(s): J69.0 - PNEUMONITIS DUE TO INHALATION OF FOOD AND VOMIT Status: Suspected (3) Rectal bleed Code(s): K62.5 - HEMORRHAGE OF ANUS AND RECTUM Status: Acute (4) Sacral decubitus ulcer, stage III Code(s): L89.153 - PRESSURE ULCER OF SACRAL REGION, STAGE 3 Status: Chronic (5) CAD (coronary artery disease) Code(s): I25.10 - ATHSCL HEART DISEASE OF [place] CORONARY ARTERY W/O ANG PCTRS Status: Chronic (6) Dementia Code(s): F03.90 - UNSPECIFIED DEMENTIA WITHOUT BEHAVIORAL DISTURBANCE Status: Chronic (7) Protein-calorie malnutrition, severe Code(s): E43 - UNSPECIFIED SEVERE PROTEIN-CALORIE MALNUTRITION Status: Chronic (8) Sepsis Code(s): A41.9 - SEPSIS, UNSPECIFIED ORGANISM Status: Resolved - Plan * . Pt treated with meropenem. Await blood cultures. Discussed with daughter, updated her. Needs discharge planning. Review of Systems - Review of Systems Respiratory: negative: Cough, Dry, Shortness of Breath, Hemoptysis, SOB with Excertion, Pleuritic Pain, Sputum, Wheezing Cardiovascular: negative: Chest Pain, Palpitations, Orthopnea, Paroxysmal Noc. Dyspnea, Edema, Light Headedness - Medications/Allergies Allergies/Adverse Reactions: Allergies Allergy/AdvReac Type Severity Reaction Status Date / Time codeine Allergy Verified 10/18/17 22:06 iodine Allergy Verified 10/18/17 22:06 levofloxacin Allergy Verified 10/18/17 22:06 meperidine HCl [From Demerol] Allergy Verified 10/18/17 22:06 morphine Allergy Verified 10/18/17 22:06 Penicillins Allergy Verified 10/18/17 22:06 Sulfa (Sulfonamide Allergy Verified 10/18/17 22:06 Antibiotics) Medications: Current Medications Acetaminophen (Tylenol) 650 mg PO Q4H PRN PRN Reason: Headache/Fever or Pain Acetaminophen (Tylenol) 650 mg [place] Q4H PRN PRN Reason: Headache/Fever or Pain Aripiprazole (Abilify) 15 mg PO DAILY [facility] Last Admin: 10/23/17 09:56 Dose: 15 mg Clonazepam (Klonopin) 0.5 mg PO Q4H PRN PRN Reason: Anxiety Last Admin: 10/22/17 17:23 Dose: 0.5 mg Hydralazine HCl (Apresoline) 10 mg SLOW IVP Q6H PRN PRN Reason: SBP Greater Than 170 Last Admin: 10/21/17 12:46 Dose: 10 mg Irbesartan (Avapro) 300 mg PO DAILY [facility] Last Admin: 10/23/17 09:56 Dose: 300 mg Ondansetron HCl (Zofran) 4 mg IVP Q6H PRN PRN Reason: Nausea/Vomiting Paroxetine HCl (Paxil) 30 mg PO DAILY [facility] Last Admin: 10/23/17 09:57 Dose: 30 mg Potassium Chloride (Klor-Con) 10 meq PO DAILY [facility] Last Admin: 10/23/17 09:56 Dose: 10 meq Topiramate (Topamax) 50 mg PO BID [facility] Last Admin: 10/23/17 09:58 Dose: 50 mg
[2017-10-23] MEDS: clonazePAM 0.5 MG TAB PO PRN ×2 (15:49→21:52)
[2017-10-23] MEDS: MEROPENEM 1 GM/50 ML 1 GM in Premix Bag 1 BAG IVPB SCH ×2 (16:51→23:58)
[2017-10-24 05:37] LABS: #Eosinphils 0.3 thou/uL (0.0-0.7); #Lymphocytes 1.5 thou/uL (1.20-3.40); #Monocytes 0.6 thou/uL (0.11-0.59); %Basophils 0.1 % (0.0-1.0); %Eosinophils 3.5 % (0.0-10.0); %Monocytes 8.6 % (0.0-10.0); Hematocrit 29.6 % (36.0-47.0); Mean Platelet Volume 7.9 fL (7.4-10.4); Red Blood Cell (RBC) Count 3.28 mill/uL (4.20-5.40); White Blood Cell (WBC) Count 7.3 thou/uL (4.8-10.8)
[2017-10-24 05:49] LABS: Anion Gap 8 mmol/L (10-20); BUN (Urea Nitrogen) 17 mg/dL (9.8-20.1); Calc. Creatinine Clearance 53 mL/min (70-130); Calcium 8.4 mg/dL (7.8-10.44); Carbon Dioxide 32 mmol/L (23-31); Chloride 103 mmol/L (98-107); Estimated GFR-MDRD Greater than 90
[2017-10-24] MEDS: MEROPENEM 1 GM/50 ML 1 GM in Premix Bag 1 BAG IVPB SCH ×2 (09:36→15:01)
[2017-10-24] MEDS: PARoxetine 20 MG TAB PO SCH (09:42)
[2017-10-24] MEDS: Topiramate 25 MG TAB PO SCH ×2 (09:43→20:16)
[2017-10-24] MEDS: Aripiprazole 15 MG TAB PO SCH (09:43)
--- NOTE | 2017-10-24 12:29 | PDOC.PN ---
- Subjective Encounter Start Date: 10/24/17 Encounter Start Time: 09:20 Pt seen for followup re: UTI. Says she feels better. No chest pain or shortness of breath. - Objective Resuscitation Status: Resuscitation Status DNR:Do Not Resuscitate MAR Reviewed: Yes Vital Signs & Weight: Vital Signs (12 hours) Temp Pulse Resp BP Pulse Ox 10/24/17 11:39 98.0 F 89 22 H 163/75 H 98 10/24/17 07:50 98.2 F 64 20 171/75 H 100 10/24/17 04:00 98.4 F 68 18 160/82 H 98 Weight Admit Weight 86 lb Weight 99 lb I&O: 10/23/17 10/24/17 10/25/17 06:59 06:59 06:59 Intake Total 340 Balance 340 Result Diagrams: 10/25/17 03:24 10/25/17 03:24 Phys Exam - Physical Examination Constitutional: NAD HEENT: moist MMs Neck: supple Respiratory: clear to auscultation bilateral Cardiovascular: RRR Gastrointestinal: soft Neurological: moves all 4 limbs Psychiatric: normal affect Deviation from normal: Sacral pressure ulcer Dx/Plan (1) Urinary tract infection due to Proteus Code(s): N39.0 - URINARY TRACT INFECTION, SITE NOT SPECIFIED; B96.4 - PROTEUS ( MIRABILIS) (MORGANII) CAUSING DIS CLASSD ELSWHR Status: Acute (2) Sacral decubitus ulcer, stage III Code(s): L89.153 - PRESSURE ULCER OF SACRAL REGION, STAGE 3 Status: Chronic (3) CAD (coronary artery disease) Code(s): I25.10 - ATHSCL HEART DISEASE OF [place] CORONARY ARTERY W/O ANG PCTRS Status: Chronic (4) Dementia Code(s): F03.90 - UNSPECIFIED DEMENTIA WITHOUT BEHAVIORAL DISTURBANCE Status: Chronic (5) Protein-calorie malnutrition, severe Code(s): E43 - UNSPECIFIED SEVERE PROTEIN-CALORIE MALNUTRITION Status: Chronic (6) Sepsis Code(s): A41.9 - SEPSIS, UNSPECIFIED ORGANISM Status: Resolved (7) Aspiration pneumonia Code(s): J69.0 - PNEUMONITIS DUE TO INHALATION OF FOOD AND VOMIT Status: Resolved (8) Rectal bleed Code(s): K62.5 - HEMORRHAGE OF ANUS AND RECTUM Status: Resolved - Plan PT/OT, DVT proph w/SCDs * . Final blood cultures negative. Hb stable. Likely discharge 24-48h Review of Systems - Review of Systems Respiratory: negative: Cough, Dry, Shortness of Breath, Hemoptysis, SOB with Excertion, Pleuritic Pain, Sputum, Wheezing Cardiovascular: negative: Chest Pain, Palpitations, Orthopnea, Paroxysmal Noc. Dyspnea, Edema, Light Headedness - Medications/Allergies Allergies/Adverse Reactions: Allergies Allergy/AdvReac Type Severity Reaction Status Date / Time codeine Allergy Verified 10/18/17 22:06 iodine Allergy Verified 10/18/17 22:06 levofloxacin Allergy Verified 10/18/17 22:06 meperidine HCl [From Demerol] Allergy Verified 10/18/17 22:06 morphine Allergy Verified 10/18/17 22:06 Penicillins Allergy Verified 10/18/17 22:06 Sulfa (Sulfonamide Allergy Verified 10/18/17 22:06 Antibiotics) Medications: Current Medications Acetaminophen (Tylenol) 650 mg PO Q4H PRN PRN Reason: Headache/Fever or Pain Acetaminophen (Tylenol) 650 mg [place] Q4H PRN PRN Reason: Headache/Fever or Pain Aripiprazole (Abilify) 15 mg PO DAILY [facility] Last Admin: 10/24/17 09:43 Dose: 15 mg Clonazepam (Klonopin) 0.5 mg PO Q4H PRN PRN Reason: Anxiety Last Admin: 10/23/17 21:52 Dose: 0.5 mg Hydralazine HCl (Apresoline) 10 mg SLOW IVP Q6H PRN PRN Reason: SBP Greater Than 170 Last Admin: 10/21/17 12:46 Dose: 10 mg Meropenem 1 gm/ Device 50 mls @ 100 mls/hr IVPB 0800,1600,2359 [facility] Last Admin: 10/24/17 09:36 Dose: 50 mls Irbesartan (Avapro) 300 mg PO DAILY [facility] Last Admin: 10/24/17 09:43 Dose: 300 mg Ondansetron HCl (Zofran) 4 mg IVP Q6H PRN PRN Reason: Nausea/Vomiting Paroxetine HCl (Paxil) 30 mg PO DAILY [facility] Last Admin: 10/24/17 09:42 Dose: 30 mg Potassium Chloride (Klor-Con) 10 meq PO DAILY [facility] Last Admin: 10/24/17 09:41 Dose: 10 meq Topiramate (Topamax) 50 mg PO BID [facility] Last Admin: 10/24/17 09:43 Dose: 50 mg
[2017-10-24] MEDS: clonazePAM 0.5 MG TAB PO PRN ×2 (16:09→20:16)
[2017-10-25] MEDS: MEROPENEM 1 GM/50 ML 1 GM in Premix Bag 1 BAG IVPB SCH ×2 (00:23→08:29)
[2017-10-25 04:38] LABS: #Eosinphils 0.3 thou/uL (0.0-0.7); #Lymphocytes 1.7 thou/uL (1.20-3.40); #Monocytes 0.9 thou/uL (0.11-0.59); #Neutrophils 4.8 thou/uL (1.40-6.50); %Basophils 0.4 % (0.0-1.0); %Eosinophils 3.7 % (0.0-10.0); %Lymphocytes 22.2 % (21.0-51.0); Hematocrit 30.5 % (36.0-47.0); Mean Platelet Volume 8.8 fL (7.4-10.4); Red Blood Cell (RBC) Count 3.34 mill/uL (4.20-5.40); White Blood Cell (WBC) Count 7.8 thou/uL (4.8-10.8)
[2017-10-25 04:48] LABS: Anion Gap 8 mmol/L (10-20); BUN (Urea Nitrogen) 21 mg/dL (9.8-20.1); Calc. Creatinine Clearance 53 mL/min (70-130); Calcium 8.5 mg/dL (7.8-10.44); Carbon Dioxide 32 mmol/L (23-31); Chloride 104 mmol/L (98-107); Estimated GFR-MDRD Greater than 90
[2017-10-25] MEDS: Aripiprazole 15 MG TAB PO SCH (08:22)
[2017-10-25] MEDS: PARoxetine 20 MG TAB PO SCH (08:23)
[2017-10-25] MEDS: Topiramate 25 MG TAB PO SCH ×2 (08:24→22:30)
--- NOTE | 2017-10-25 09:19 | PDOC.PN ---
- Subjective Encounter Start Date: 10/25/17 Encounter Start Time: 07:40 Pt seen for followup re: UTI. Denies chest pain, shortness of breath. No other complaints. - Objective Resuscitation Status: Resuscitation Status DNR:Do Not Resuscitate MAR Reviewed: Yes Vital Signs & Weight: Vital Signs (12 hours) Temp Pulse Resp BP Pulse Ox 10/25/17 08:00 97.5 F L 70 12 159/78 H 100 10/25/17 04:00 98.2 F 66 14 164/72 H 97 10/25/17 02:11 98 Weight Admit Weight 86 lb Weight 99 lb I&O: 10/24/17 10/25/17 10/26/17 06:59 06:59 06:59 Intake Total 340 340 Balance 340 340 Result Diagrams: 10/25/17 03:24 10/25/17 03:24 Phys Exam - Physical Examination Constitutional: NAD HEENT: moist MMs Neck: supple Respiratory: clear to auscultation bilateral Cardiovascular: RRR Gastrointestinal: soft Neurological: moves all 4 limbs Psychiatric: normal affect Deviation from normal: Sacral wound Dx/Plan (1) Urinary tract infection due to Proteus Code(s): N39.0 - URINARY TRACT INFECTION, SITE NOT SPECIFIED; B96.4 - PROTEUS ( MIRABILIS) (MORGANII) CAUSING DIS CLASSD ELSWHR Status: Acute (2) Sacral decubitus ulcer, stage III Code(s): L89.153 - PRESSURE ULCER OF SACRAL REGION, STAGE 3 Status: Chronic (3) CAD (coronary artery disease) Code(s): I25.10 - ATHSCL HEART DISEASE OF [place] CORONARY ARTERY W/O ANG PCTRS Status: Chronic (4) Dementia Code(s): F03.90 - UNSPECIFIED DEMENTIA WITHOUT BEHAVIORAL DISTURBANCE Status: Chronic (5) Protein-calorie malnutrition, severe Code(s): E43 - UNSPECIFIED SEVERE PROTEIN-CALORIE MALNUTRITION Status: Chronic (6) Sepsis Code(s): A41.9 - SEPSIS, UNSPECIFIED ORGANISM Status: Resolved (7) Aspiration pneumonia Code(s): J69.0 - PNEUMONITIS DUE TO INHALATION OF FOOD AND VOMIT Status: Resolved (8) Rectal bleed Code(s): K62.5 - HEMORRHAGE OF ANUS AND RECTUM Status: Resolved - Plan PT/OT, out of bed/ambulate, DVT proph w/SCDs * . DC antibiotics. Likely for [facility] when approved. Review of Systems - Review of Systems Cardiovascular: negative: Chest Pain, Palpitations, Orthopnea, Paroxysmal Noc. Dyspnea, Edema, Light Headedness Genitourinary: negative: Dysuria, Frequency, Incontinence, Hematuria, Retention - Medications/Allergies Allergies/Adverse Reactions: Allergies Allergy/AdvReac Type Severity Reaction Status Date / Time codeine Allergy Verified 10/18/17 22:06 iodine Allergy Verified 10/18/17 22:06 levofloxacin Allergy Verified 10/18/17 22:06 meperidine HCl [From Demerol] Allergy Verified 10/18/17 22:06 morphine Allergy Verified 10/18/17 22:06 Penicillins Allergy Verified 10/18/17 22:06 Sulfa (Sulfonamide Allergy Verified 10/18/17 22:06 Antibiotics) Medications: Current Medications Acetaminophen (Tylenol) 650 mg PO Q4H PRN PRN Reason: Headache/Fever or Pain Acetaminophen (Tylenol) 650 mg [place] Q4H PRN PRN Reason: Headache/Fever or Pain Aripiprazole (Abilify) 15 mg PO DAILY [facility] Last Admin: 10/25/17 08:22 Dose: 15 mg Clonazepam (Klonopin) 0.5 mg PO Q4H PRN PRN Reason: Anxiety Last Admin: 10/24/17 20:16 Dose: 0.5 mg Hydralazine HCl (Apresoline) 10 mg SLOW IVP Q6H PRN PRN Reason: SBP Greater Than 170 Last Admin: 10/21/17 12:46 Dose: 10 mg Irbesartan (Avapro) 300 mg PO DAILY [facility] Last Admin: 10/25/17 08:22 Dose: 300 mg Ondansetron HCl (Zofran) 4 mg IVP Q6H PRN PRN Reason: Nausea/Vomiting Paroxetine HCl (Paxil) 30 mg PO DAILY [facility] Last Admin: 10/25/17 08:23 Dose: 30 mg Potassium Chloride (Klor-Con) 10 meq PO DAILY [facility] Last Admin: 10/25/17 08:25 Dose: 10 meq Topiramate (Topamax) 50 mg PO BID [facility] Last Admin: 10/25/17 08:24 Dose: 50 mg
[2017-10-25] MEDS: clonazePAM 0.5 MG TAB PO PRN ×2 (18:07→22:31)
[2017-10-26] MEDS: PARoxetine 20 MG TAB PO SCH (08:06)
[2017-10-26] MEDS: Aripiprazole 15 MG TAB PO SCH (08:07)
[2017-10-26] MEDS: Topiramate 25 MG TAB PO SCH (08:07)
[2017-10-26 11:03] VITALS: BP 182/77; TEMP 98.8
[2017-10-26] MEDS: clonazePAM 0.5 MG TAB PO PRN (12:52)
--- NOTE | 2017-10-26 16:23 | DIS ---
PRIMARY CARE PHYSICIAN: Russ Manjarrez M.D. DATE OF ADMISSION: 10/18/2017 DATE OF DISCHARGE: 10/26/2017 DISCHARGE DIAGNOSES: 1. Urinary tract infection with Proteus mirabilis resistant to ciprofloxacin, levofloxacin, nitrofur antoin and trimethoprim/sulfamethoxazole, susceptible to ampicillin, cefepime, cefoxitin, ceftazidime , ceftriaxone, meropenem, piperacillin tazobactam and tobramycin. 2. Suspected aspiration. 3. Sepsis. 4. Rectal bleeding, most likely hemorrhoidal. CONDITION OF PATIENT ON THE DAY OF DISCHARGE: Stable. I assessed Ms. Adams on the day of discharge. She denies any chest pain or shortness of breath. Vi chapincito signs are stable. S1 and S2 are heard, regular. Lungs are clear to auscultation bilaterally. DISCHARGE MEDICATIONS: Abilify 15 mg daily, clonazepam 0.5 mg every 4 hours as needed, Avapro 300 mg daily, paroxetine 30 mg daily, potassium chloride 10 mEq daily, Topamax 50 mg 2 times a day. HOSPITAL COURSE: Ms. Adams is a pleasant 86-year-old lady who was admitted to [facility] on 10/18/2017 for sepsis secondary to urinary tract infection as well as suspected aspir ation. She also had blood in her diapers. She was started on broad spectrum intravenous antibiotics . Gastroenterology service, Dr. Rogers was consulted. It was felt that her bleeding was most lik yan hemorrhoidal. Her hemoglobin was stable. Urine grew Proteus mirabilis, sensitivities as described above. She continued to improve clinically. She is being discharged to [facility] for further m anagement. Many thanks for allowing me to participate in your patient's care. Please feel free to contact me wi th any questions or concerns. DISCHARGE DESTINATION: [facility]. TOTAL AMOUNT OF TIME SPENT COORDINATING THIS DISCHARGE: 33 minutes. Please note that on 10/25, she had a white count of 7800, hemoglobin 9.6, platelet count 174,000, nor mal sodium, normal potassium, creatinine 0.54. Please also note that imaging of her abdomen and pelv is with CT on 10/18/2017 showed a large right renal staghorn calculus.
== END 2017-10-26 13:50 | disposition swing bed (61) | DRG 871 ==
LOC: ERS 16:35 → 2NO 19:23 → EEVIPCON 19:23 → T4-B 10-21 20:19
PROVIDERS: ADMIT Internal Medicine; ATTEND Internal Medicine
DX: A41.59 Other Gram-negative sepsis (principal); J69.0 Pneumonitis due to inhalation of food and vomit; E43 Unspecified severe protein-calorie malnutrition; N39.0 Urinary tract infection, site not specified; L89.153 Pressure ulcer of sacral region, stage 3; F03.90 Unspecified dementia, unspecified severity, without behavioral disturbance, psychotic disturbance, mood disturbance, and anxiety; I48.0 Paroxysmal atrial fibrillation; R64 Cachexia; Z68.1 Body mass index [BMI] 19.9 or less, adult; I48.91 Unspecified atrial fibrillation; E86.0 Dehydration; Z66 Do not resuscitate; D64.9 Anemia, unspecified; Z16.24 Resistance to multiple antibiotics; K64.9 Unspecified hemorrhoids; I10 Essential (primary) hypertension; I25.10 Atherosclerotic heart disease of native coronary artery without angina pectoris; F32.9 Major depressive disorder, single episode, unspecified; R25.1 Tremor, unspecified; K21.9 Gastro-esophageal reflux disease without esophagitis; F41.9 Anxiety disorder, unspecified
CPT/HCPCS: 36415; 36416; 71010; 71275; 74177; 80048; 80053; 80202; 81003; 81015; 82550; 82553; 83605; 83735; 83880; 84484; 85025; 85379; 85610; 85730; 86850; 86900; 86901; 87015; 87040; 87045; 87046; 87077; 87086; 87186; 87324; 87449; 87899; 93005; 94760; 96361; 96365; 96367; 96375; A4353; G8996-GN-CJ; G8996-GN-CL; G8997-GN-CJ; J0360; J0456; J1200; J1630; J2060; J2930; J3370; J7050; S0028

== ENCOUNTER 2017-11-27 10:40 | Inpatient (IN) | payer MEDICARE, OTHER ==
[2017-11-27 11:44] LABS: #Lymphocytes 0.7 thou/uL (1.20-3.40); #Monocytes 0.8 thou/uL (0.11-0.59); #Neutrophils 12.6 thou/uL (1.40-6.50); %Lymphocytes 4.7 % (21.0-51.0); %Monocytes 5.4 % (0.0-10.0); %Neutrophils 89.9 % (42.0-75.0); Hemoglobin 9.6 g/dL (12.0-16.0); Mean Corpuscular HGB CONC 30.9 g/dL (32.0-36.0); Mean Corpuscular Hemoglobin 27.6 pg (27.0-31.0); Mean Corpuscular Volume 89.4 fl (81.0-99.0); Mean Platelet Volume 8.2 fL (7.4-10.4); Platelet Count 393 thou/uL (130-400); RBC Distribution Width 14.2 % (11.5-14.5); Red Blood Cell (RBC) Count 3.47 mill/uL (4.20-5.40); White Blood Cell (WBC) Count 14.1 thou/uL (4.8-10.8)
--- NOTE | 2017-11-27 11:50 | CT ---
CT CERVICAL SPINE WITHOUT CONTRAST: HISTORY: Fall with neck pain and uncontrollable movement. COMPARISON: None. TECHNIQUE: Multiple contiguous axial images were obtained in a CT of the cervical spine without contrast. Sagit chapincito and coronal reformats were performed. FINDINGS: Diffuse osteopenia is seen. The vertebral bodies and intervertebral disks demonstrate normal height and alignment without fracture or subluxation. No prevertebral soft tissue swelling is seen. The posterior facets are well aligned. Normal alignment of the skull base with the cervical spine is seen. IMPRESSION: No evidence of acute osseous abnormality of the cervical spine. POS: [facility]
--- NOTE | 2017-11-27 11:56 | CT ---
CT OF THE BRAIN WITHOUT CONTRAST: Comparison: None. History: Abnormal movement. Fall with head trauma. Technique: Multiple contiguous axial images were obtained in a CT of the brain without contrast. FINDINGS: There are scattered hypodensities in the subcortical and periventricular white matter, likely seconda ry to small vessel ischemic disease. No large confluent infarction is seen. There is no evidence of h ydrocephalous, intracranial hemorrhage, or extraaxial fluid collection. The calvarium and overlying soft tissues are unremarkable. The visualized paranasal sinuses and masto id air cells are well aerated. IMPRESSION: No evidence of acute intracranial abnormality. POS: [facility]
[2017-11-27 12:02] LABS: INR-International Normal Ratio 1.6; PTT 24.6 SEC (22.9-36.1); Prothrombin Time 19.2 SEC (12.0-14.7)
[2017-11-27 12:12] LABS: ALT (SGPT) 421 U/L (8-55); AST (SGOT) 246 U/L (5-34); Albumin 3.9 g/dL (3.4-4.8); Alkaline Phosphatase 208 U/L (40-150); Anion Gap 23 mmol/L (10-20); BUN (Urea Nitrogen) 61 mg/dL (9.8-20.1); Bilirubin, Total 0.4 mg/dL (0.2-1.2); Calc. Creatinine Clearance 0 mL/min (70-130); Calcium 9.9 mg/dL (7.8-10.44); Carbon Dioxide 20 mmol/L (23-31); Chloride 104 mmol/L (98-107); Estimated GFR-MDRD 45; Globulin 3.4 g/dL (2.4-3.5); Glucose 81 mg/dL (83-110); Potassium 5.1 mmol/L (3.5-5.1); Protein, Total 7.3 g/dL (6.0-8.3); Sodium 142 mmol/L (136-145)
[2017-11-27 12:14] LABS: CKMB 8.5 ng/mL (0-6.6); Troponin I 11.208 ng/mL (< 0.028)
[2017-11-27 12:16] LABS: Bilirubin Negative (Negative); Blood, Urine Large (Negative); Clarity CLOUDY (Clear); Glucose, Urine (Dipstick) Negative (Negative); Leukocyte Large (Negative); Nitrite Negative (Negative); Protein, Urine (Dipstick) 100 mg/dL (Neg-Trace); Specific Gravity, Urine 1.019 (1.002-1.036); Urobilinogen 0.2 mg/dL (0.2-1.0)
[2017-11-27 12:19] LABS: Bacteria/HPF 4+ HPF (None Seen); RBC/HPF GREATER THAN 50-TNTC HPF (0-3); Squamous Epithelial 0-3 HPF (0-3)
[2017-11-27 12:21] LABS: Pathc Cast-AUWi Flag 2.83 (0-2.49)
[2017-11-27 12:23] LABS: Hyaline Casts/LPF 0-3 HYALINE CAST LPF (0-3 Hyaline); Manual Microscopic Reviewed? No Path Casts Seen
--- NOTE | 2017-11-27 12:54 | RAD ---
SINGLE VIEW OF THE CHEST: HISTORY: Chest pain. Shortness of breath. COMPARISON: 10/18/2017 FINDINGS: A single view of the chest shows an enlarged cardiomediastinal silhouette. Increased interstitial ma rkings are present. There is no evidence of consolidation, mass, or pleural effusion. Degenerative changes are seen in the spine and shoulders. IMPRESSION: 1. No evidence of acute cardiopulmonary disease. 2. Cardiomegaly. POS: [facility]
[2017-11-27] MEDS ORDERED: hydrALAZINE 20 MG/ML VIAL SLOW IVP PRN (13:28)
[2017-11-27] MEDS ORDERED: Loratadine 10 MG TAB PO PRN (13:28)
[2017-11-27] MEDS ORDERED: Chloraseptic Spray 180 ml Bottle PO PRN (13:28)
[2017-11-27] MEDS ORDERED: Lorazepam 1 MG TAB PO PRN (13:28)
[2017-11-27] MEDS ORDERED: Artificial Tears 18 DROP/0.9 ML EA EYE PRN (13:28)
[2017-11-27] MEDS ORDERED: Eucerin (Mineral Oil/Petrolatum,White) 30 gm Jar TOP PRN (13:28)
[2017-11-27] MEDS ORDERED: Nitroglycerin 0.4 MG TAB (25 Tab Bottle) SL PRN (13:28)
[2017-11-27] MEDS ORDERED: Ondansetron HCl/PF 4 MG/2 ML Vial IVP PRN (13:28)
[2017-11-27] MEDS ORDERED: Mag-Al 1200 mg/1200 mg/30 ML UDCUP PO PRN (13:28)
[2017-11-27] MEDS ORDERED: Haloperidol 1 MG TAB PO PRN (13:28)
[2017-11-27] MEDS ORDERED: Diabetic Tussin 200 MG/10 ML UDCUP PO PRN (13:28)
[2017-11-27] MEDS ORDERED: cefTRIAXone\\ROCEPHIN 1 GM in Sodium Chloride 0.9% 100 ML IVPB SCH (13:28)
[2017-11-27] MEDS ORDERED: clonazePAM 0.5 MG TAB PO PRN (13:28)
[2017-11-27] MEDS ORDERED: Loperamide HCl 2 MG CAP PO PRN (13:28)
[2017-11-27] MEDS ORDERED: Ondansetron ODT 4 MG TAB PO PRN (13:28)
[2017-11-27] MEDS ORDERED: Milk Of Magnesia 30 ML UDCUP PO PRN (13:28)
[2017-11-27] MEDS ORDERED: Senokot 8.6 MG TAB PO PRN (13:28)
[2017-11-27] MEDS ORDERED: Acetaminophen 325 MG TAB PO PRN (13:28)
[2017-11-27] MEDS ORDERED: Sodium Chloride 0.65% Nasal 44 ML BOT EA NARE PRN (13:28)
--- NOTE | 2017-11-27 13:44 | HP ---
PRIMARY CARE PHYSICIAN: Dr. Russ Manjarrez REASON FOR ADMISSION: Sepsis, UTI, [id number] elevation myocardial infarction type 2, altered mental status, mechanical fall. HISTORY OF PRESENT ILLNESS: An 86-year-old female, unfortunately she is completely confused and disoriented. She cannot provide any history and family member are not present. I tried to reach on listed phone number, but unable to reach them so history is very limited based on medical record. This patient was recently admitted in our hospital on 10/18/2017 and she was discharged to [facility] on 10/26/2017 where she stayed until 2017 and she was discharged from [facility] to home with her daughter. The patient fell down from bed and subsequently she had a bruise on the right frontal aspect of head. The patient was disoriented and paramedics were called. Paramedics noted that her oxygen saturation was variable from 70-90 and that is why they started on oxygen. This patient has generalized tremor. I tried to get history from her, but unable to get any history. PAST MEDICAL HISTORY: Irritable bowel syndrome, chronic back pain, osteoarthritis, severe protein calorie malnutrition, generalized tremor, history of atrial fibrillation, hypertension, recent admission for Proteus mirabilis urinary tract infection, staghorn calculi, severe physical deconditioning, diverticulosis, asthma. PAST SURGICAL HISTORY: Left hip open reduction internal fixation, hysterectomy , back surgery. PAST PSYCHIATRIC HISTORY: Anxiety, depression. FAMILY HISTORY: Father had colon cancer. SOCIAL HISTORY: Patient lives at home with daughter, she was in swing bed and recently released, no history of tobacco, alcohol or drug abuse. REVIEW OF SYSTEMS: All review of systems tried to review with the patient, but unable to review at this point because of altered mental status. CODE STATUS: The patient has DNR status during previous admission as well as at [facility]. ALLERGIES: CODEINE, IODINE, LEVOFLOXACIN, DEMEROL, MORPHINE, PENICILLIN and SULFA. EMERGENCY ROOM COURSE: The patient has received IV fluid and aspirin. CURRENT HOME MEDICATIONS: The patient was discharged on following medications: Tylenol 650 mg q.4h. p.r.n., Abilify 15 mg p.o. daily, Dulcolax 10 mg per rectum every day p.r.n., Klonopin 0.5 mg q.8h. p.r.n., DuoNeb q.6 hourly p.r.n. , Avapro 300 mg p.o. daily, Paxil 30 mg p.o. daily, MiraLax 17 grams p.o. daily , potassium chloride 10 mEq p.o. daily, Topamax 50 mg p.o. b.i.d. PHYSICAL EXAMINATION: VITAL SIGNS: On arrival, blood pressure 119/77, pulse 110, respiratory rate 28 , temperature 96.8, saturation 92% with 2 liter oxygen. Weight 58.9 kilograms. GENERAL: The patient is completely disoriented and does not follow commands, awake with a generalized tremor, tachycardic, cachectic. HEENT: Head; the patient does have mild hematoma over the right forehead. Normocephalic. Eyes; pupils round, reactive to light. Extraocular muscle intact. No nystagmus. ENT: Dry appearing mucous membranes. No oral lesions. No pharyngeal erythema or exudate. NECK: Supple, no JVD, no thyromegaly, no carotid bruit, no jugular venous distention. LUNGS: Clear to auscultation without any obvious rhonchi or rales. CARDIAC: S1, S2 irregularly irregular, tachycardia, no murmur, no gallop, no rub. ABDOMEN: Soft, bowel sounds present. Does not grimace on deep palpation. No organomegaly, no peritoneal signs, no distention. Bowel sounds present. No suprapubic discomfort. BACK: Unremarkable, no CVA tenderness. EXTREMITIES: Upper extremities; passive movement of all joints are normal limits, though patient does have generalized tremor that limits examination. Lower extremities; the patient does have generalized tremor, no edema. Good distal pulsation. SKIN: The patient does have bruise on the left lower extremity as well. MUSCULOSKELETAL: The patient has very severe cachexia. NEUROLOGIC: Patient is baseline demented and confused with generalized tremor, does not have any focal neurological deficit. SIGNIFICANT LABS: EKG showing sinus tachycardia, right and left atrial enlargement. EKG is also very difficult to interpret because of her tremor. CT brain based on my review, no acute intracranial process. CBC: WBC 14.1, hemoglobin 9.6, platelets 393 with left shift. INR 1.6. BMP: Sodium 142, potassium 5.1, chloride 104, carbon dioxide 20, anion gap 23, BUN 61 , creatinine 1.14, glucose 81, calcium 9.9. LFT: AST 246, ALT 421. Alkaline phosphatase 208, albumin 3.9, CK-MB 8.5, troponin I 11.208. Urinalysis consistent with urinary tract infection. Chest x-ray based on my review, no acute cardiopulmonary process, cardiomegaly. CT cervical spine negative for any fracture or dislocation. CT brain is negative for any acute intracranial process. ASSESSMENT AND PLAN: 1. Acute encephalopathy, likely due to underlying infection with urinary tract infection as well as abnormal metabolic parameters with acute kidney injury, metabolic acidosis, and abnormal liver function tests. 2. Non-ST elevation myocardial infarction, type 2, likely due to demand ischemia. This patient does not have any EKG changes, does not have any chest pain. 3. Acute kidney failure with metabolic acidosis, likely due to dehydration and poor p.o. intake. 4. Abnormal liver function tests. Rule out cholecystitis. This patient had a CT of the abdomen and pelvis recently which was not showing any process. We will do ultrasound right upper quadrant for further evaluation. 5. Sepsis with acute organ dysfunction. This patient has leukocytosis. Source of infection is urinary tract. Underlying gallbladder pathology needs to be excluded. This patient has staghorn calculi and that is also to her infection. At the same time, patient has non-ST elevation myocardial infarction , type 2 as well as acute kidney failure, abnormal liver function tests, and coagulopathy 6. Severe sepsis. 7. Coagulopathy likely this is related with underlying sepsis. 8. Staghorn calculi. Based on previous culture and sensitivity result, we will continue with Rocephin 1 gram q.24 hours. 9. Severe protein calorie malnutrition. The patient will be given nutritional supplement. 10. Deep venous thrombosis prophylaxis. Lovenox 30 mg subcutaneously daily. 11. Gastrointestinal prophylaxis. Pepcid 20 mg p.o. b.i.d. 12. Code status: The patient is DNR, that was confirmed. Disposition plan based on clinical course. During this admission because of significantly abnormal troponin we will consult Cardiology evaluation, though this patient is not a good candidate for any further evaluation. We will also obtain echocardiography. Disposition plan based on clinical course. This patient may need placement to assisted. [facility]
[2017-11-27] MEDS ORDERED: Ondansetron HCl/PF 4 MG/2 ML Vial ONE (13:54)
[2017-11-27] MEDS ORDERED: Aspirin 300 MG Suppository ONE (13:55)
[2017-11-27] MEDS ORDERED: cefTRIAXone\\ROCEPHIN 1 GM, Syringe 0.4 ML in Sterile Water 9.6 ML SLOW IVP SCH (15:00)
[2017-11-27 15:07] LABS: Critical Call Chem Troponin I RESULT DECREASING; Troponin I 9.791 ng/mL (< 0.028)
--- NOTE | 2017-11-27 15:25 | ULT ---
RIGHT UPPER QUADRANT ULTRASOUND: History: Abnormal liver function tests. FINDINGS: Gallbladder has a normal appearance without stones. Common duct is 0.5 cm diameter. Echogenic focus w ithin the left lateral lobe may represent a calcified granuloma. There is no intrahepatic biliary dil atation. No free fluid is visible. Right pleural fluid is apparent. Calcification of the right kidney correlates with CT findings. IMPRESSION: 1. No evidence of gallstones or biliary obstruction. 2. No acute hepatic abnormalities are demonstrated. 3. Right pleural fluid. POS: [facility]
[2017-11-27 18:10] LABS: Troponin I 11.443 ng/mL (< 0.028)
[2017-11-27] MEDS ORDERED: Atorvastatin Calcium 10 MG TAB PO SCH (21:00)
[2017-11-27] MEDS: Famotidine 20 MG TAB PO SCH (21:19)
[2017-11-27] MEDS: Metoprolol Tartrate 25 MG TAB PO SCH (21:20)
[2017-11-27] MEDS: Topiramate 100 MG TAB PO SCH (21:22)
[2017-11-27] MEDS: cefTRIAXone\\ROCEPHIN 1 GM, Syringe 0.4 ML in Sterile Water 9.6 ML SLOW IVP SCH (21:27)
[2017-11-27] MEDS: Dextrose 5 %-0.45 % NaCl 1,000 ML IV SCH (21:32)
[2017-11-28 06:09] LABS: ALT (SGPT) 1508 U/L (8-55); AST (SGOT) 1671 U/L (5-34); Albumin 3.5 g/dL (3.4-4.8); Alkaline Phosphatase 185 U/L (40-150); Anion Gap 15 mmol/L (10-20); BUN (Urea Nitrogen) 88 mg/dL (9.8-20.1); Bilirubin, Total 0.3 mg/dL (0.2-1.2); Calc. Creatinine Clearance 18 mL/min (70-130); Calcium 8.2 mg/dL (7.8-10.44); Carbon Dioxide 26 mmol/L (23-31); Cardiac Risk 2.7 (Less than 4.5); Chloride 105 mmol/L (98-107); Cholesterol 100 mg/dl (< 200 Desired); Estimated GFR-MDRD 37; Globulin 2.7 g/dL (2.4-3.5); Glucose 163 mg/dL (83-110); HDL Cholesterol 37 mg/dL (>60 Neg Risk); LDL Cholesterol, Calculated 52 mg/dL; Potassium 5.7 mmol/L (3.5-5.1); Protein, Total 6.2 g/dL (6.0-8.3); Sodium 140 mmol/L (136-145); Triglycerides 56 mg/dL (Less than 150)
[2017-11-28 06:33] LABS: Hemoglobin 8.5 g/dL (12.0-16.0); Mean Corpuscular HGB CONC 30.3 g/dL (32.0-36.0); Mean Corpuscular Hemoglobin 26.6 pg (27.0-31.0); Mean Corpuscular Volume 87.8 fl (81.0-99.0); Mean Platelet Volume 8.6 fL (7.4-10.4); Platelet Count 302 thou/uL (130-400); RBC Distribution Width 14.2 % (11.5-14.5); Red Blood Cell (RBC) Count 3.19 mill/uL (4.20-5.40); White Blood Cell (WBC) Count 20.3 thou/uL (4.8-10.8)
[2017-11-28 07:01] LABS: Band 3 % (5-11); Hypochromia SLIGHT = 6-15 cells (100X) (0-5/hpf); Lymphocytes 15 % (21-51); MDiff Complete? YES; Monocytes 9 % (0-10); Neutrophil 73 % (42-75); PLT Morphology Comment Appears Adequate; Polychromasia SLIGHT = 2-3 cells (100X) (0-2/hpf)
[2017-11-28 07:49] LABS: INR-International Normal Ratio 1.9; PTT 35.2 SEC (22.9-36.1); Prothrombin Time 22.8 SEC (12.0-14.7)
[2017-11-28] MEDS ORDERED: Polyethylene Glycol 3350 17 GM Packet PO PRN (08:22)
[2017-11-28] MEDS ORDERED: clonazePAM 1 MG TAB PO PRN (08:22)
[2017-11-28] MEDS ORDERED: Enoxaparin Sodium 30 MG/0.3 ML SYRINGE SC SCH (09:00)
[2017-11-28] MEDS: Polyethylene Glycol 3350 17 GM Packet PO SCH (09:52)
[2017-11-28] MEDS: Topiramate 100 MG TAB PO SCH ×2 (09:52→22:47)
[2017-11-28] MEDS: PARoxetine 20 MG TAB PO SCH (09:52)
[2017-11-28] MEDS: Aripiprazole 15 MG TAB PO SCH (09:52)
[2017-11-28] MEDS: Multivitamin W/ Minerals 1 TAB PO SCH (09:53)
[2017-11-28] MEDS: Cyanocobalamin (Vitamin B-12) 1,000 MCG TAB PO SCH (09:53)
[2017-11-28] MEDS: Folic Acid 1 MG TAB PO SCH (09:53)
[2017-11-28] MEDS: Metoprolol Tartrate 25 MG TAB PO SCH ×2 (09:53→22:48)
[2017-11-28] MEDS: Docusate 100 MG CAP PO SCH (10:11)
[2017-11-28] MEDS: clonazePAM 0.5 MG TAB PO SCH (10:11)
[2017-11-28] MEDS: Famotidine 20 MG TAB PO SCH ×2 (10:12→22:47)
--- NOTE | 2017-11-28 11:01 | PDOC.PN ---
- Subjective Encounter Start Date: 11/28/17 Encounter Start Time: 07:40 -: old records requested/rev Patient seen and examined. No new complaints. No overnight events - Objective Resuscitation Status: Resuscitation Status DNR:Do Not Resuscitate MAR Reviewed: Yes Vital Signs & Weight: Vital Signs (12 hours) Temp Pulse Resp BP Pulse Ox 11/28/17 08:10 104 H 18 98/53 L 95 11/28/17 04:00 98.0 F 104 H 20 114/57 L 95 I&O: 11/27/17 11/28/17 11/29/17 06:59 06:59 06:59 Intake Total 1171 Balance 1171 Result Diagrams: 11/28/17 05:06 11/28/17 05:06 Additional Labs: Accuchecks 11/27/17 11/27/17 20:16 18:20 POC Glucose 78 72 EKG Reviewed by me: Yes Phys Exam - Physical Examination Constitutional: NAD HEENT: PERRLA, moist MMs, sclera anicteric Neck: no JVD, supple Respiratory: no wheezing, no rales, no rhonchi Cardiovascular: RRR, no significant murmur Gastrointestinal: soft, non-tender, no distention, positive bowel sounds Musculoskeletal: no edema, pulses present Neurological: moves all 4 limbs Lymphatic: no nodes Psychiatric: normal affect Dx/Plan (1) Acute kidney failure Status: Acute (2) Acute liver failure Status: Acute Qualifiers: Hepatic coma status: without hepatic coma Qualified Code(s): K72.00 - Acute and subacute hepatic failure without coma (3) Coagulopathy Status: Acute (4) Encephalopathy acute Code(s): G93.40 - ENCEPHALOPATHY, UNSPECIFIED Status: Acute (5) Non-ST elevation myocardial infarction (NSTEMI), type 2 Code(s): I21.A1 - MYOCARDIAL INFARCTION TYPE 2 Status: Acute (6) UTI (urinary tract infection) Status: Acute (7) Anxiety and depression Code(s): F41.9 - ANXIETY DISORDER, UNSPECIFIED; F32.9 - MAJOR DEPRESSIVE DISORDER, SINGLE EPISODE, UNSPECIFIED Status: Chronic (8) CAD (coronary artery disease) Code(s): I25.10 - ATHSCL HEART DISEASE OF [place] CORONARY ARTERY W/O ANG PCTRS Status: Chronic (9) Dementia Code(s): F03.90 - UNSPECIFIED DEMENTIA WITHOUT BEHAVIORAL DISTURBANCE Status: Chronic (10) Paroxysmal atrial fibrillation Code(s): I48.0 - PAROXYSMAL ATRIAL FIBRILLATION Status: Chronic (11) Protein-calorie malnutrition, severe Code(s): E43 - UNSPECIFIED SEVERE PROTEIN-CALORIE MALNUTRITION Status: Chronic (12) Sacral decubitus ulcer, stage III Code(s): L89.153 - PRESSURE ULCER OF SACRAL REGION, STAGE 3 Status: Chronic (13) Severe muscle deconditioning Code(s): R29.898 - OTH SYMPTOMS AND SIGNS INVOLVING THE MUSCULOSKELETAL SYSTEM Status: Chronic Comment: (14) Staghorn calculus Code(s): N20.0 - CALCULUS OF KIDNEY Status: Chronic - Plan cont current plan of care, continue antibiotics * DC lovenox * consult GI for abnormal LFT * monitor labs * consult palliative care * cardiology consulted. * dc lipitor due to high LFT * echo pending * prognosis is very poor * continue rocephin * follow culture Review of Systems - Review of Systems Other: not reliable due to her cognitive status - Medications/Allergies Allergies/Adverse Reactions: Allergies Allergy/AdvReac Type Severity Reaction Status Date / Time codeine Allergy Verified 11/27/17 20:45 iodine Allergy Verified 11/27/17 20:45 levofloxacin Allergy Verified 11/27/17 20:49 meperidine HCl [From Demerol] Allergy Verified 11/27/17 20:49 morphine Allergy Verified 11/27/17 20:49 Penicillins Allergy Verified 11/27/17 20:45 Sulfa (Sulfonamide Allergy Verified 11/27/17 20:45 Antibiotics) Medications: Current Medications Acetaminophen (Tylenol) 650 mg PO Q4H PRN PRN Reason: Headache/Fever or Pain Al Hydroxide/Mg Hydroxide (Maalox) 30 ml PO Q6H PRN PRN Reason: Heartburn or Indigestion Albuterol/Ipratropium (Duoneb) 3 ml NEB [id number] PRN PRN Reason: SOB &/or Wheezing Aripiprazole (Abilify) 15 mg PO DAILY [facility] Last Admin: 11/28/17 09:52 Dose: 15 mg Artificial Tears (Tears Naturale) 0 drop EA EYE PRN PRN PRN Reason: Dry Eyes Aspirin (Aspirin Chewable) 81 mg PO DAILY [facility] Last Admin: 11/28/17 09:53 Dose: 81 mg Clonazepam (Klonopin) 0.5 mg PO Q8H PRN PRN Reason: Anxiety/Restlessness/Sleep Last Admin: 11/27/17 17:42 Dose: 0.5 mg Clonazepam (Klonopin) 0.5 mg PO DAILY [facility] Last Admin: 11/28/17 10:11 Dose: 0.5 mg Clonazepam (Klonopin) 1 mg PO HS PRN PRN Reason: Anxiety Cyanocobalamin (Vitamin B-12) 1,000 mcg PO DAILY [facility] Last Admin: 11/28/17 09:53 Dose: 1,000 mcg Docusate Sodium (Colace) 200 mg PO DAILY [facility] Last Admin: 11/28/17 10:11 Dose: 200 mg Famotidine (Pepcid) 20 mg PO BID [facility] Last Admin: 11/28/17 10:12 Dose: 20 mg Folic Acid (Folvite) 1 mg PO DAILY [facility] Last Admin: 11/28/17 09:53 Dose: 1 mg Guaifenesin (Robitussin Sf) 200 mg PO Q4H PRN PRN Reason: Cough Haloperidol (Haldol) 1 mg PO Q4H PRN PRN Reason: Anxiety/Agitation Hydralazine HCl (Apresoline) 10 mg SLOW IVP Q4H PRN PRN Reason: Systolic BP > 180 Dextrose/Sodium Chloride (D5 1/2 Ns) 1,000 mls @ 50 mls/hr IV .Q20H [facility] Last Admin: 11/27/17 21:32 Dose: 1,000 mls Ceftriaxone Sodium 1 gm/ (Syringe 0.4 ml/ Sterile Water) 10 mls @ 120 mls/hr SLOW IVP 2100 [facility] Last Admin: 11/27/17 21:27 Dose: 10 mls Iron/Minerals/Multivitamins (Theragran M) 1 tab PO DAILY [facility] Last Admin: 11/28/17 09:53 Dose: 1 tab Loperamide HCl (Imodium) 2 mg PO PRN PRN PRN Reason: Diarrhea/Loose Stools Loratadine (Claritin) 10 mg PO DAILYPRN PRN PRN Reason: Sinus Symptoms Lorazepam (Ativan) 1 mg PO Q4H PRN PRN Reason: Anxiety/Agitation Magnesium Hydroxide (Milk Of Magnesium) 30 ml PO DAILYPRN PRN PRN Reason: Constipation Metoprolol Tartrate (Lopressor) 12.5 mg PO BID [facility] Last Admin: 11/28/17 09:53 Dose: 12.5 mg Mineral Oil/White Petrolatum (Eucerin Cream) 0 gm TOP BIDPRN PRN PRN Reason: Dry Skin Nitroglycerin (Nitrostat) 0.4 mg SL Q5MIN PRN PRN Reason: Chest Pain Ondansetron HCl (Zofran Odt) 4 mg PO Q6H PRN PRN Reason: Nausea/Vomiting Ondansetron HCl (Zofran) 4 mg IVP Q6H PRN PRN Reason: Nausea/Vomiting Paroxetine HCl (Paxil) 30 mg PO DAILY [facility] Last Admin: 11/28/17 09:52 Dose: 30 mg Phenol (Chloraseptic [place] 180 Ml Bot) 0 ml PO PRN PRN PRN Reason: Sore Throat Polyethylene Glycol (Miralax) 17 gm PO DAILY [facility] Last Admin: 11/28/17 09:52 Dose: 17 gm Polyethylene Glycol (Miralax) 17 gm PO DAILY PRN PRN Reason: Constipation Senna (Senokot) 2 tab PO HSPRN PRN PRN Reason: Constipation Sodium Chloride ([place] Nasal [place] 0.65%) 0 ml EA NARE QIDPRN PRN PRN Reason: Nasal Congestion Topiramate (Topamax) 50 mg PO BID [facility] Last Admin: 11/28/17 09:52 Dose: 50 mg
[2017-11-28] MEDS: Dextrose 5 %-0.45 % NaCl 1,000 ML IV SCH ×2 (11:14→22:47)
--- NOTE | 2017-11-28 12:18 | CON ---
DATE OF CONSULTATION: 11/28/2017 HISTORY: Zandra Adams is an 86-year-old white female who really cannot provide much of a history. She was admitted here on 10/18/2017 and discharged to [facility] on 10/26/2017. She stayed there until 11/25/2017 and went to live with her daughter. She apparently had a fall from bed and paramedics were called. Her O2 saturation was somewhat variable. The patient is unable to give an adequate history. She does complain that at times she has chest discomfort; however, when asked where this pain was, she points to her abdomen. PAST MEDICAL HISTORY: Obtained from old records - History of atrial fibrillation, irritable bowel syndrome, chronic back pain, osteoarthritis, tremor, malnutrition, urinary tract infections, hypertension, asthma. OPERATIONS: Left hip ORIF, hysterectomy, and back surgery. MEDICATIONS: Abilify 15 mg daily, Klonopin 0.5 mg daily and 1 mg at bedtime p.r.n., Colace, Avapro 300 mg daily, paroxetine 30 mg daily, MiraLax p.r.n., KCl 10 mEq b.i.d., Topamax 50 b.i.d. ALLERGIES: CODEINE, IODINE, LEVOFLOXACIN, MEPERIDINE, MORPHINE, PENICILLINS and SULFA. SOCIAL HISTORY: She does not smoke or drink. She has recently been discharged from the [facility] to live with her daughter. FAMILY HISTORY: Unremarkable. REVIEW OF SYSTEMS: Review of systems unable to be obtained due to the patient' s mental status. PHYSICAL EXAMINATION: VITAL SIGNS: Blood pressure 114/57, pulse 104, sinus rhythm on the monitor. HEENT: PERRL. NECK: Supple. LUNGS: Chest is clear. CARDIAC: S1 and S2 are normal, without any S3, S4 or murmurs. ABDOMEN: Normal bowel sounds, without tenderness or organomegaly. EXTREMITIES: Revealed no clubbing, cyanosis or edema. NEUROLOGIC: The patient is confused and has a resting tremor. She moves all extremities. SKIN: Warm and dry. LABORATORY DATA: EKG reveals sinus tachycardia with inferior infarction with Q- waves in 2, 3 and F. She also has evidence of an anterior infarction with Q- waves in V2 through V4. These findings are new from EKG from 10/2017. Troponin I 11.443, CK-MB 8.5, sodium 142, potassium 5.1, chloride 104, carbon dioxide 20, BUN 61, and creatinine 1.41. AST 246 up to 1671, ALT 421 up to 1508. Alkaline phosphatase 208, hemoglobin 8.5, hematocrit 28.0. White count 20,300, platelets of 302,000. INR 1.9. Urinalysis reveals large leukocyte esterase, greater than 50 RBCs and greater than 50 WBCs per high power field and 4+ bacteria. Urine cultures have grown a gram negative alana. IMPRESSION: 1. Status post acute anterior and inferior myocardial infarction since she was hospitalized in 10/2017. She cannot give an accurate history and when asked about chest pain, she states that she has chest pain, but then points to her abdomen. 2. Sepsis with gram negative rods growing in blood 3. Coagulopathy, probably due to underlying sepsis. 4. Elevated liver function tests, probably also related to sepsis; however, this also could be due to hepatic congestion from congestive heart failure. 5. The patient is Do Not Resuscitate. PLAN: The patient had been placed on the Ecotrin as well as low dose beta- cole. I am not sure how much beta-cole she can tolerate with her blood pressure. Echocardiogram will be performed to assess left ventricular function. Old EKGs will be requested although the changes on EKG are new from one month ago. Now with a DNR status as well as her mental confusion, I do not feel that she is a good candidate for any type of cardiac invasive evaluation and should be treated medically alone. MAE
[2017-11-28] MEDS ORDERED: Sodium Chloride 0.9% 500 ML IVPB SCH (14:15)
[2017-11-28] MEDS ORDERED: Albumin 25% 25 GM/100 ML BOT IVPB SCH (19:00)
[2017-11-28] MEDS ORDERED: Hydrocortisone Sod Succ/PF 100 mg/2 ml Vial IVP SCH (19:00)
--- NOTE | 2017-11-28 22:36 | PDOC.EVN ---
Event Note - Event Note Event Note: Called by primary for lack of access and likely septic shock, need for CVC. Right IJ CVC placed in sterile fashion using seldinger technique under ultrasound guidance. No immediate complications, CXR demonstrated good position , no PTX; POCUS with + lung sliding. EBL 5 cc. I was present for the entire procedure. Formal note to follow by the resident.
[2017-11-28] MEDS: Hydrocortisone Sod Succ/PF 100 mg/2 ml Vial IVP SCH (22:46)
[2017-11-28] MEDS: cefTRIAXone\\ROCEPHIN 1 GM, Syringe 0.4 ML in Sterile Water 9.6 ML SLOW IVP SCH ×2 (22:48→23:22)
--- NOTE | 2017-11-28 22:48 | PDOC.CNTRL ---
Central Line Procedure Note - Procedure Date: 11/28/17 Time: 22:15 - PreProcedure Diagnosis: 1. Hypotension requiring pressors 2. Lack of venous access - PostProcedure Diagnosis: 1. Hypotension requiring pressors 2. Central venous access established - Description Focused site: internal jugular: Right Ultrasound guidance: Yes Patient tolerated procedure: no complications Procedure in Details: PROCEDURE DOCUMENT PREPARATION SPECIALIST: Ailyn Medina MD, Carlos Chappell MD, Liam Devine MD ATTENDING PHYSICIAN: In Attendance Y CONSENT: Consent was obtained from daughter prior to the procedure. Indications, risks, and benefits were explained at length. PROCEDURE SUMMARY: A time out was performed. My hands were washed immediately prior to the procedure. I wore a surgical cap, mask with protective eyewear, full gown and sterile gloves throughout the procedure. The patient was placed in Trendelenburg position. right chest region was prepped using chlorhexidine scrub and draped in sterile fashion using a full drape. The Internal Jugular vein was identified using the ultrasound. Anesthesia was achieved over the vein using 1% lidocaine. Using real-time out of plane guidance, the introducer needle was inserted into the Internal Jugular vein under direct ultrasound visualization. Venous blood was withdrawn. The syringe was removed and a guidewire was advanced into the introducer needle. The guidewire was visualized in the Internal Jugular Vein by ultrasound. A small incision was made at the skin surface with a scalpel and the introducer needle was exchanged for a dilator over the guidewire. After appropriate dilation was obtained, the dilator was exchanged over the wire for a triple lumen central venous catheter. The wire was removed and the catheter was sutured in place at 15 cm. A sterile sorbaview shield was placed over the catheter at the insertion site. The patient tolerated the procedure without any hemodynamic compromise. At time of procedure completion, all ports aspirated and flushed properly. Post-procedure chest x-ray is pending at this time. Estimated blood loss is <50mL.
[2017-11-28] MEDS ORDERED: Norepinephrine 8 MG/250 ML BAG IVPB PRN ×3 (22:59)
--- NOTE | 2017-11-28 23:08 | RAD ---
PORTABLE AP CHEST X-RAY 11/28/17 HISTORY: Central line placement. COMPARISON: 11/27/17. FINDINGS: The patient is rotated to the left. The right internal jugular vein central venous catheter has been placed in the interim with tip overlying the right aspect of the mediastinum and overlying the expect ed location of the SVC. No pneumothorax is seen. The cardiac silhouette is magnified by projection bu t does appear mildly enlarged. There is mild prominence of the perihilar interstitial densities also seen on the prior exam. There is veil-like opacity at the right lung base which could be related to s mall right pleural effusion layering posteriorly. The left lateral costophrenic angle is also not wel l visualized, but this is due to patient rotation. Osteopenia is present. Vascular calcification is s een in the thoracic aorta. No other interval change. IMPRESSION: 1. Interval placement of right internal jugular vein central venous catheter. There is no eviden ce of pneumothorax. 2. Increased bilateral perihilar interstitial densities similar to the prior study and may be re lated to mild chronic lung changes; although, an element of mild pulmonary edema is a possibility. 3. Suggestion of small right pleural effusion layering posteriorly. 4. Cardiomegaly. 5. Osteopenia. POS: [facility]
[2017-11-29] MEDS: Hydrocortisone Sod Succ/PF 100 mg/2 ml Vial IVP SCH ×3 (06:37→18:30)
[2017-11-29] MEDS: Dextrose 5 %-0.45 % NaCl 1,000 ML IV SCH ×3 (06:38→18:41)
[2017-11-29 08:23] LABS: INR-International Normal Ratio 2.5; Prothrombin Time 28.2 SEC (12.0-14.7)
[2017-11-29 08:33] LABS: ALT (SGPT) 2302 U/L (8-55); AST (SGOT) 2052 U/L (5-34); Albumin 3.5 g/dL (3.4-4.8); Alkaline Phosphatase 174 U/L (40-150); Anion Gap 15 mmol/L (10-20); BUN (Urea Nitrogen) 98 mg/dL (9.8-20.1); Bilirubin, Total 0.4 mg/dL (0.2-1.2); Calc. Creatinine Clearance 16 mL/min (70-130); Calcium 7.7 mg/dL (7.8-10.44); Carbon Dioxide 24 mmol/L (23-31); Chloride 103 mmol/L (98-107); Estimated GFR-MDRD 27; Globulin 2.5 g/dL (2.4-3.5); Glucose 244 mg/dL (83-110); Potassium 5.9 mmol/L (3.5-5.1); Sodium 136 mmol/L (136-145)
[2017-11-29 08:44] LABS: Lactic Acid 2.3 mmol/L (0.5-2.2)
[2017-11-29] MEDS ORDERED: Sodium Chloride 0.9% 1,000 ML IV SCH (08:45)
[2017-11-29 09:05] LABS: #Lymphocytes 0.7 thou/uL (1.20-3.40); #Monocytes 1.5 thou/uL (0.11-0.59); #Neutrophils 17.1 thou/uL (1.40-6.50); %Eosinophils 0.1 % (0.0-10.0); %Lymphocytes 3.7 % (21.0-51.0); %Monocytes 7.6 % (0.0-10.0); %Neutrophils 88.6 % (42.0-75.0); Hemoglobin 8.4 g/dL (12.0-16.0); Mean Corpuscular HGB CONC 31.5 g/dL (32.0-36.0); Mean Corpuscular Hemoglobin 27.8 pg (27.0-31.0); Mean Corpuscular Volume 88.1 fl (81.0-99.0); Mean Platelet Volume 8.9 fL (7.4-10.4); Platelet Count 238 thou/uL (130-400); RBC Distribution Width 14.2 % (11.5-14.5); Red Blood Cell (RBC) Count 3.03 mill/uL (4.20-5.40); White Blood Cell (WBC) Count 19.3 thou/uL (4.8-10.8)
[2017-11-29] MEDS: clonazePAM 0.5 MG TAB PO SCH (09:31)
[2017-11-29] MEDS: Cyanocobalamin (Vitamin B-12) 1,000 MCG TAB PO SCH (09:31)
[2017-11-29] MEDS: Aripiprazole 15 MG TAB PO SCH (09:31)
[2017-11-29] MEDS: Docusate 100 MG CAP PO SCH (09:31)
[2017-11-29] MEDS: PARoxetine 20 MG TAB PO SCH (09:32)
[2017-11-29] MEDS: Famotidine 20 MG TAB PO SCH (09:32)
[2017-11-29] MEDS: Multivitamin W/ Minerals 1 TAB PO SCH (09:32)
[2017-11-29] MEDS: Folic Acid 1 MG TAB PO SCH (09:32)
[2017-11-29] MEDS: Polyethylene Glycol 3350 17 GM Packet PO SCH (09:33)
[2017-11-29] MEDS: Topiramate 100 MG TAB PO SCH ×2 (09:33→20:24)
--- NOTE | 2017-11-29 09:37 | PDOC.PN ---
- Subjective Encounter Start Date: 11/29/17 Encounter Start Time: 07:10 because of low BP she required to transfer to CCU, she needed central line, she is on levophed drip, she is very lethargic - Objective Resuscitation Status: Resuscitation Status DNR:Do Not Resuscitate MAR Reviewed: Yes Vital Signs & Weight: Vital Signs (12 hours) Temp Pulse Ox 11/29/17 08:00 97.8 F 11/29/17 07:45 100 11/29/17 04:00 98 F 11/29/17 00:00 97.8 F Weight Admit Weight 87 lb Weight 99 lb 3.2 oz Most Recent Monitor Data Heart Rate from ECG 85 NIBP 108/71 NIBP BP-Mean 89 Respiration from ECG 21 SpO2 96 I&O: 11/28/17 11/29/17 11/30/17 06:59 06:59 06:59 Intake Total 1171 1826 Output Total 125 40 Balance 1171 1701 -40 Result Diagrams: 11/29/17 07:52 11/29/17 07:52 EKG Reviewed by me: Yes (nsr) Phys Exam - Physical Examination Constitutional: NAD cachectic HEENT: PERRLA, sclera anicteric dry MM Neck: no nodes, no JVD, supple, full ROM Respiratory: no wheezing, no rales, no rhonchi Cardiovascular: RRR, no significant murmur, no rub Gastrointestinal: soft, no distention, positive bowel sounds Musculoskeletal: no edema, pulses present Neurological: moves all 4 limbs Dx/Plan (1) Septic shock Code(s): A41.9 - SEPSIS, UNSPECIFIED ORGANISM; R65.21 - SEVERE SEPSIS WITH SEPTIC SHOCK Status: Acute (2) Acute kidney failure Status: Acute Comment: due to sepsis (3) Acute liver failure Status: Acute Qualifiers: Hepatic coma status: without hepatic coma Qualified Code(s): K72.00 - Acute and subacute hepatic failure without coma Comment: due to sepsis and hypoperfusion (4) Coagulopathy Status: Acute (5) Encephalopathy acute Code(s): G93.40 - ENCEPHALOPATHY, UNSPECIFIED Status: Acute (6) Non-ST elevation myocardial infarction (NSTEMI), type 2 Code(s): I21.A1 - MYOCARDIAL INFARCTION TYPE 2 Status: Acute Comment: due to demand ischemia (7) UTI (urinary tract infection) Status: Acute Comment: complicated, with staghorn calculi (8) Anxiety and depression Code(s): F41.9 - ANXIETY DISORDER, UNSPECIFIED; F32.9 - MAJOR DEPRESSIVE DISORDER, SINGLE EPISODE, UNSPECIFIED Status: Chronic (9) CAD (coronary artery disease) Code(s): I25.10 - ATHSCL HEART DISEASE OF [place] CORONARY ARTERY W/O ANG PCTRS Status: Chronic (10) Dementia Code(s): F03.90 - UNSPECIFIED DEMENTIA WITHOUT BEHAVIORAL DISTURBANCE Status: Chronic (11) Paroxysmal atrial fibrillation Code(s): I48.0 - PAROXYSMAL ATRIAL FIBRILLATION Status: Chronic (12) Protein-calorie malnutrition, severe Code(s): E43 - UNSPECIFIED SEVERE PROTEIN-CALORIE MALNUTRITION Status: Chronic (13) Sacral decubitus ulcer, stage III Code(s): L89.153 - PRESSURE ULCER OF [place]CR[place] REGION, STAGE 3 Status: Chronic (14) Severe muscle deconditioning Code(s): R29.898 - OTH SYMPTOMS AND SIGNS INVOLVING THE MUSCULOSKELETAL SYSTEM Status: Chronic Comment: (15) Staghorn calculus Code(s): N20.0 - CALCULUS OF KIDNEY Status: Chronic - Plan cont current plan of care, continue antibiotics * will give bolus fluid * continue levophed and wean off as tolerated * continue rocephin * Speech evaluation * prognosis is very poor * medication reviewed as below * symptomatic treatment. Review of Systems - Review of Systems Other: unable to review due to her cognitive status - Medications/Allergies Allergies/Adverse Reactions: Allergies Allergy/AdvReac Type Severity Reaction Status Date / Time codeine Allergy Verified 11/27/17 20:45 iodine Allergy Verified 11/27/17 20:45 levofloxacin Allergy Verified 11/27/17 20:49 meperidine HCl [From Demerol] Allergy Verified 11/27/17 20:49 morphine Allergy Verified 11/27/17 20:49 Penicillins Allergy Verified 11/27/17 20:45 Sulfa (Sulfonamide Allergy Verified 11/27/17 20:45 Antibiotics) Medications: Current Medications Acetaminophen (Tylenol) 650 mg PO Q4H PRN PRN Reason: Headache/Fever or Pain Al Hydroxide/Mg Hydroxide (Maalox) 30 ml PO Q6H PRN PRN Reason: Heartburn or Indigestion Albuterol/Ipratropium (Duoneb) 3 ml NEB [id number] PRN PRN Reason: SOB &/or Wheezing Aripiprazole (Abilify) 15 mg PO DAILY [facility] Last Admin: 11/29/17 09:31 Dose: 15 mg Artificial Tears (Tears Naturale) 0 drop EA EYE PRN PRN PRN Reason: Dry Eyes Aspirin (Aspirin Chewable) 81 mg PO DAILY [facility] Last Admin: 11/29/17 09:31 Dose: 81 mg Clonazepam (Klonopin) 0.5 mg PO Q8H PRN PRN Reason: Anxiety/Restlessness/Sleep Last Admin: 11/27/17 17:42 Dose: 0.5 mg Clonazepam (Klonopin) 0.5 mg PO DAILY [facility] Last Admin: 11/29/17 09:31 Dose: 0.5 mg Clonazepam (Klonopin) 1 mg PO HS PRN PRN Reason: Anxiety Cyanocobalamin (Vitamin B-12) 1,000 mcg PO DAILY [facility] Last Admin: 11/29/17 09:31 Dose: 1,000 mcg Docusate Sodium (Colace) 200 mg PO DAILY [facility] Last Admin: 11/29/17 09:31 Dose: 200 mg Famotidine (Pepcid) 20 mg PO 0900 [facility] Last Admin: 11/29/17 09:32 Dose: 20 mg Folic Acid (Folvite) 1 mg PO DAILY [facility] Last Admin: 11/29/17 09:32 Dose: 1 mg Guaifenesin (Robitussin Sf) 200 mg PO Q4H PRN PRN Reason: Cough Haloperidol (Haldol) 1 mg PO Q4H PRN PRN Reason: Anxiety/Agitation Hydralazine HCl (Apresoline) 10 mg SLOW IVP Q4H PRN PRN Reason: Systolic BP > 180 Hydrocortisone Sodium Succinate (Solu-Cortef) 50 mg IVP Q6HR [facility] Last Admin: 11/29/17 06:37 Dose: 50 mg Dextrose/Sodium Chloride (D5 1/2 Ns) 1,000 mls @ 150 mls/hr IV .Q6H40M [facility] Last Admin: 11/29/17 06:38 Dose: 1,000 mls Ceftriaxone Sodium 1 gm/ (Syringe 0.4 ml/ Sterile Water) 10 mls @ 120 mls/hr SLOW IVP 2100 [facility] Last Admin: 11/28/17 23:22 Dose: 10 mls Norepinephrine Bitartrate 8 mg / Miscellaneous Medication 1 each/ Sodium Chloride 258 mls @ 0 mls/hr IVPB INF PRN; Protocol; Titrate PRN Reason: TO KEEP SBP > 90 Last Admin: 11/28/17 23:27 Dose: 258 mls Sodium Chloride (Normal Saline 0.9%) 1,000 mls @ 500 mls/hr IV .Q2H [facility] Stop: 11/29/17 10:00 Last Admin: 11/29/17 08:30 Dose: 1,000 mls Iron/Minerals/Multivitamins (Theragran M) 1 tab PO DAILY [facility] Last Admin: 11/29/17 09:32 Dose: 1 tab Loperamide HCl (Imodium) 2 mg PO PRN PRN PRN Reason: Diarrhea/Loose Stools Loratadine (Claritin) 10 mg PO DAILYPRN PRN PRN Reason: Sinus Symptoms Lorazepam (Ativan) 1 mg PO Q4H PRN PRN Reason: Anxiety/Agitation Magnesium Hydroxide (Milk Of Magnesium) 30 ml PO DAILYPRN PRN PRN Reason: Constipation Mineral Oil/White Petrolatum (Eucerin Cream) 0 gm TOP BIDPRN PRN PRN Reason: Dry Skin Nitroglycerin (Nitrostat) 0.4 mg SL Q5MIN PRN PRN Reason: Chest Pain Ondansetron HCl (Zofran Odt) 4 mg PO Q6H PRN PRN Reason: Nausea/Vomiting Ondansetron HCl (Zofran) 4 mg IVP Q6H PRN PRN Reason: Nausea/Vomiting Paroxetine HCl (Paxil) 30 mg PO DAILY [facility] Last Admin: 11/29/17 09:32 Dose: 30 mg Phenol (Chloraseptic Broadbent 180 Ml Bot) 0 ml PO PRN PRN PRN Reason: Sore Throat Polyethylene Glycol (Miralax) 17 gm PO DAILY [facility] Last Admin: 11/29/17 09:33 Dose: 17 gm Polyethylene Glycol (Miralax) 17 gm PO DAILY PRN PRN Reason: Constipation Senna (Senokot) 2 tab PO HSPRN PRN PRN Reason: Constipation Sodium Chloride (Owsley Nasal Broadbent 0.65%) 0 ml EA NARE QIDPRN PRN PRN Reason: Nasal Congestion Topiramate (Topamax) 50 mg PO BID [facility] Last Admin: 11/29/17 09:33 Dose: 50 mg
[2017-11-29] MEDS ORDERED: Prevnar 13-Val Conj/PF 0.5 ML SYRINGE IM ONE (11:15)
[2017-11-29 12:34] VITALS: BMI 18.1
--- NOTE | 2017-11-29 16:04 | CON ---
DATE OF CONSULTATION: 11/29/2017 HISTORY OF PRESENT ILLNESS: Ms. Adams is an 86-year-old female who is cared for by her daughter. She is unable to give a history. According to the medical records, she was hospitalized here in October with a urinary tract infectio n. She was found to have a staghorn calculus at that time. It is unclear whether or not Urology was involved with her care, but I do not see any notes from the urologist. She went home from a [facility] b ed apparently on the and has been admitted here on the . She was transferred into the ICU f or hypotension. PAST MEDICAL AND SURGICAL HISTORY: Remarkable for; 1. Dementia. 2. Irritable bowel. 3. Degenerative arthritis. 4. History of atrial fibrillation. 5. History of hypertension. 6. History of diverticulosis. 7. History of asthma. 8. History of surgical repair of hip fracture, status post hysterectomy. 9. History of back surgery. 10. History of anxiety. 11. History of depression. SOCIAL HISTORY: Nonsmoker, nondrinker, nondrug user. FAMILY HISTORY: Positive for cancer, otherwise negative for lung disease at an early age. REVIEW OF SYSTEMS: Not obtainable. PHYSICAL EXAMINATION: GENERAL: The patient was on a low dose of Levophed with a pressure of 110. She received another lit er of saline and Levophed is almost off now. EYES: Her sclerae is anicteric. NECK: Supple. LUNGS: Remarkable for coarse equal breath sounds. HEART: Regular rhythm. ABDOMEN: Soft and nontender. EXTREMITIES: Without asymmetry. LABORATORY DATA: White count 19.3, hemoglobin 8.4 and platelets 238. Sodium 136, potassium 5.9, chloride 103, bicarbonate 24, BUN 98, creatinine 1.79 and glucose 244. Intake and output is positive 1701 as of this morning. IMPRESSION: 1. Respiratory failure. 2. Severe intravascular volume depletion. 3. Recurrent Proteus urinary tract infection. I do not find any blood cultures. So, I cannot decide whether or not she truly is septic. I suspect it is more likely that she is tejinder rely volume depleted and this happens to continue to have a Proteus urinary tract isolate. It may be that this is related to her staghorn calculus. I do not think she is a candidate for any type of urological intervention. I do not feel it would be appropriate to be overly aggressive here given that she is a do not resusci patrick patient and is completely encephalopathic at this point. Other problems include borderline hype rkalemia, not a candidate for dialysis in my opinion, anemia of unclear etiology, ? of chronic disea se. 4. Acute on chronic kidney dysfunction. 5. Advanced age with frail state. 6. Hypotension, most likely volume related. 7. History of atrial fibrillation, not a clinical issue. 8. History of myocardial infarction with EKG findings that are new compared to 10/27. She is unable to give a history as to whether or not she has had chest pain. PLAN: Supportive care. Palliative care is involved. I have little to offer than trying to wean her off pressors. This is a 70-minute consult, greater than 50% of the time was spent reviewing records, coordinating c are with staff on the unit, reviewing old records in the computer and reviewing available radiographs myself.
[2017-11-29] MEDS: cefTRIAXone\\ROCEPHIN 1 GM, Syringe 0.4 ML in Sterile Water 9.6 ML SLOW IVP SCH (20:24)
--- NOTE | 2017-11-29 23:37 | CON ---
DATE OF CONSULTATION: 11/29/2017 REASON FOR CONSULTATION: Abnormal LFTs. HISTORY OF PRESENT ILLNESS: Mr. Zandra Adams is a very pleasant 86-year-old female who is known to me from before. The patient was hospitalized in 10/2017 with UTI and also had rectal bleeding. The patient has dementia. The patient apparently was straining stool during the last admission and this was very bulky with some bleed. At that time, the blood count here did not drop down. The patient has mild dementia. The family did not wish to pursue any further and no colonoscopy was done. It wa s also felt that hematochezia was mostly from the straining and possibly mild. The patient was admit taz to the hospital because of acute OK and recent fall. The patient was found to have abnormal live r function tests on admission. During the last admission in 10/2017, her liver function tests are no rmal. Due to current admission, the AST is 1071, ALT 1508, alkaline phosphatase is 185. It appears that patient has acute hepatocellular injury. I did see the patient last time when she was about to be transferred from the telemetry unit ICU because of hypotension. She was hypotensive, blood pressu re reading was 70/50. Also, since admission, blood pressure is running little low around 80 systolic and 90 systolic. The patient has abdominal pain. Abdominal sonogram shows no gallstones or any dl er masses. Today, liver function tests has gone up more, AST 2052, ALT 2302, alkaline phosphatase 17 2. At the present time, she is on Levophed to keep blood pressure up and she is also mildly short-wi nded. No other relevant history. ALLERGIES: Multiple including CODEINE, IODINE, LEVOFLOXACIN, MEPERIDINE, MORPHINE, etc. MEDICAL ILLNESSES: 1. Atrial fibrillation. 2. Hypertension. 3. UTI. 4. Kidney stone. 5. Diverticular disease. 6. Asthma. 7. Severe physical deconditioning. 8. IBS. 9. Osteoarthritis. 10. Acute OK during this admission. SURGERIES: Left hip surgery and also hysterectomy and back surgeries. REVIEW OF SYSTEMS: Unobtainable because she is very weak and also has some mild dementia. PHYSICAL EXAMINATION: GENERAL: Reveals a fragile looking, elderly , who appears comfortable, in no distress but s he is mildly short of breath. VITAL SIGNS: On Levophed this morning, her pulse is 85, blood pressure 100/63. HEENT: Conjunctivae clear. CARDIOVASCULAR: First and second heart sounds normal. LUNGS: Bilatera brealth sounds with rhonchi heard. ABDOMEN: Soft. Abdomen is nondistended. Abdomen is nontender. No organomegaly or masses. CLINICAL IMPRESSION: 1. Acute myocardial infarction being seen by Cardiology. 2. Acute hepatitis likely indicative of acute liver injury. The patient most likely has had a shock liver and possibly some element of some heart failure. Abdominal sonogram show liver masses. RECOMMENDATION: From GI standpoint, there is nothing more to be done except followup LFTs and suppor tive care. Dr. Feliciano Bustillos is on-call for me over the weekend and will see the patient over t .
[2017-11-30] MEDS: Hydrocortisone Sod Succ/PF 100 mg/2 ml Vial IVP SCH ×2 (00:26→05:36)
[2017-11-30] MEDS: Dextrose 5 %-0.45 % NaCl 1,000 ML IV SCH ×4 (00:27→23:33)
[2017-11-30] MEDS: Docusate 100 MG CAP PO SCH (09:48)
[2017-11-30] MEDS: Famotidine 20 MG TAB PO SCH (09:48)
[2017-11-30] MEDS: Cyanocobalamin (Vitamin B-12) 1,000 MCG TAB PO SCH (09:48)
[2017-11-30] MEDS: Multivitamin W/ Minerals 1 TAB PO SCH (09:49)
[2017-11-30] MEDS: Polyethylene Glycol 3350 17 GM Packet PO SCH (09:49)
[2017-11-30] MEDS: Folic Acid 1 MG TAB PO SCH (09:51)
[2017-11-30] MEDS: Topiramate 100 MG TAB PO SCH ×2 (09:53→20:25)
--- NOTE | 2017-11-30 10:01 | PDOC.PN ---
- Subjective Encounter Start Date: 11/30/17 Encounter Start Time: 08:00 now levophed off since early this morning, pt's BP is stable, Patient seen and examined. No new complaints. No overnight events - Objective Resuscitation Status: Resuscitation Status DNR:Do Not Resuscitate MAR Reviewed: Yes Vital Signs & Weight: Vital Signs (12 hours) Temp 11/30/17 04:00 98 F 11/30/17 00:00 98.2 F Weight Admit Weight 87 lb Weight 100 lb 3.2 oz Most Recent Monitor Data Heart Rate from ECG 86 NIBP 95/55 NIBP BP-Mean 79 Respiration from ECG 19 SpO2 98 I&O: 11/29/17 11/30/17 12/01/17 06:59 06:59 06:59 Intake Total 1826 3002.3 Output Total 125 1120 Balance 1701 1882.3 Result Diagrams: 11/29/17 07:52 11/29/17 07:52 EKG Reviewed by me: Yes (nsr) Phys Exam - Physical Examination Constitutional: NAD HEENT: PERRLA, moist MMs, sclera anicteric Neck: no JVD, supple Respiratory: no wheezing, no rales, no rhonchi Cardiovascular: RRR, no significant murmur, no rub Gastrointestinal: soft, non-tender, no distention, positive bowel sounds Musculoskeletal: no edema, pulses present Neurological: moves all 4 limbs Lymphatic: no nodes Skin: no rash, normal turgor Dx/Plan (1) Septic shock Code(s): A41.9 - SEPSIS, UNSPECIFIED ORGANISM; R65.21 - SEVERE SEPSIS WITH SEPTIC SHOCK Status: Acute (2) Acute kidney failure Status: Acute Comment: due to sepsis (3) Acute liver failure Status: Acute Qualifiers: Hepatic coma status: without hepatic coma Qualified Code(s): K72.00 - Acute and subacute hepatic failure without coma Comment: due to sepsis and hypoperfusion (4) Coagulopathy Status: Acute (5) Encephalopathy acute Code(s): G93.40 - ENCEPHALOPATHY, UNSPECIFIED Status: Acute (6) Non-ST elevation myocardial infarction (NSTEMI), type 2 Code(s): I21.A1 - MYOCARDIAL INFARCTION TYPE 2 Status: Acute Comment: due to demand ischemia (7) UTI (urinary tract infection) Status: Acute Comment: complicated, with staghorn calculi (8) Anxiety and depression Code(s): F41.9 - ANXIETY DISORDER, UNSPECIFIED; F32.9 - MAJOR DEPRESSIVE DISORDER, SINGLE EPISODE, UNSPECIFIED Status: Chronic (9) CAD (coronary artery disease) Code(s): I25.10 - ATHSCL HEART DISEASE OF [place] CORONARY ARTERY W/O ANG PCTRS Status: Chronic (10) Dementia Code(s): F03.90 - UNSPECIFIED DEMENTIA WITHOUT BEHAVIORAL DISTURBANCE Status: Chronic (11) Paroxysmal atrial fibrillation Code(s): I48.0 - PAROXYSMAL ATRIAL FIBRILLATION Status: Chronic (12) Protein-calorie malnutrition, severe Code(s): E43 - UNSPECIFIED SEVERE PROTEIN-CALORIE MALNUTRITION Status: Chronic (13) Sacral decubitus ulcer, stage III Code(s): L89.153 - PRESSURE ULCER OF SACRAL REGION, STAGE 3 Status: Chronic (14) Severe muscle deconditioning Code(s): R29.898 - OTH SYMPTOMS AND SIGNS INVOLVING THE MUSCULOSKELETAL SYSTEM Status: Chronic Comment: (15) Staghorn calculus Code(s): N20.0 - CALCULUS OF KIDNEY Status: Chronic - Plan cont current plan of care, continue antibiotics * continue IVF * continue rocephin * will get urology input for UTI with staghorn calculi * medication reviewed as below * symptomatic treatment * if BP remains stable, will consider transfer to medical floor * will repeat labs tomorrow. Review of Systems - Review of Systems Other: unable to review due to cognitive status - Medications/Allergies Allergies/Adverse Reactions: Allergies Allergy/AdvReac Type Severity Reaction Status Date / Time codeine Allergy Verified 11/27/17 20:45 iodine Allergy Verified 11/27/17 20:45 levofloxacin Allergy Verified 11/27/17 20:49 meperidine HCl [From Demerol] Allergy Verified 11/27/17 20:49 morphine Allergy Verified 11/27/17 20:49 Penicillins Allergy Verified 11/27/17 20:45 Sulfa (Sulfonamide Allergy Verified 11/27/17 20:45 Antibiotics) Medications: Current Medications Acetaminophen (Tylenol) 650 mg PO Q4H PRN PRN Reason: Headache/Fever or Pain Al Hydroxide/Mg Hydroxide (Maalox) 30 ml PO Q6H PRN PRN Reason: Heartburn or Indigestion Albuterol/Ipratropium (Duoneb) 3 ml NEB [id number] PRN PRN Reason: SOB &/or Wheezing Artificial Tears (Tears Naturale) 0 drop EA EYE PRN PRN PRN Reason: Dry Eyes Aspirin (Aspirin Chewable) 81 mg PO DAILY [facility] Last Admin: 11/30/17 09:49 Dose: 81 mg Clonazepam (Klonopin) 0.5 mg PO Q8H PRN PRN Reason: Anxiety/Restlessness/Sleep Last Admin: 11/27/17 17:42 Dose: 0.5 mg Cyanocobalamin (Vitamin B-12) 1,000 mcg PO DAILY [facility] Last Admin: 11/30/17 09:48 Dose: 1,000 mcg Docusate Sodium (Colace) 200 mg PO DAILY [facility] Last Admin: 11/30/17 09:48 Dose: 200 mg Famotidine (Pepcid) 20 mg PO 0900 [facility] Last Admin: 11/30/17 09:48 Dose: 20 mg Folic Acid (Folvite) 1 mg PO DAILY [facility] Last Admin: 11/30/17 09:51 Dose: 1 mg Guaifenesin (Robitussin Sf) 200 mg PO Q4H PRN PRN Reason: Cough Hydralazine HCl (Apresoline) 10 mg SLOW IVP Q4H PRN PRN Reason: Systolic BP > 180 Hydrocortisone Sodium Succinate (Solu-Cortef) 50 mg IVP Q6HR [facility] Last Admin: 11/30/17 05:36 Dose: 50 mg Dextrose/Sodium Chloride (D5 1/2 Ns) 1,000 mls @ 150 mls/hr IV .Q6H40M [facility] Last Admin: 11/30/17 09:43 Dose: 1,000 mls Ceftriaxone Sodium 1 gm/ (Syringe 0.4 ml/ Sterile Water) 10 mls @ 120 mls/hr SLOW IVP 2100 [facility] Last Admin: 11/29/17 20:24 Dose: 10 mls Norepinephrine Bitartrate 8 mg / Miscellaneous Medication 1 each/ Sodium Chloride 258 mls @ 0 mls/hr IVPB INF PRN; Protocol; Titrate PRN Reason: TO KEEP SBP > 90 Last Admin: 11/28/17 23:27 Dose: 258 mls Iron/Minerals/Multivitamins (Theragran M) 1 tab PO DAILY [facility] Last Admin: 11/30/17 09:49 Dose: 1 tab Loperamide HCl (Imodium) 2 mg PO PRN PRN PRN Reason: Diarrhea/Loose Stools Loratadine (Claritin) 10 mg PO DAILYPRN PRN PRN Reason: Sinus Symptoms Magnesium Hydroxide (Milk Of Magnesium) 30 ml PO DAILYPRN PRN PRN Reason: Constipation Mineral Oil/White Petrolatum (Eucerin Cream) 0 gm TOP BIDPRN PRN PRN Reason: Dry Skin Nitroglycerin (Nitrostat) 0.4 mg SL Q5MIN PRN PRN Reason: Chest Pain Ondansetron HCl (Zofran Odt) 4 mg PO Q6H PRN PRN Reason: Nausea/Vomiting Ondansetron HCl (Zofran) 4 mg IVP Q6H PRN PRN Reason: Nausea/Vomiting Phenol (Chloraseptic [place] 180 Ml Bot) 0 ml PO PRN PRN PRN Reason: Sore Throat Polyethylene Glycol (Miralax) 17 gm PO DAILY [facility] Last Admin: 11/30/17 09:49 Dose: 17 gm Polyethylene Glycol (Miralax) 17 gm PO DAILY PRN PRN Reason: Constipation Senna (Senokot) 2 tab PO HSPRN PRN PRN Reason: Constipation Sodium Chloride ([place] Nasal [place] 0.65%) 0 ml EA NARE QIDPRN PRN PRN Reason: Nasal Congestion Topiramate (Topamax) 50 mg PO BID [facility] Last Admin: 11/30/17 09:53 Dose: 50 mg
[2017-11-30] MEDS: Albumin 25% 25 GM/100 ML BOT IVPB SCH ×3 (13:32→23:32)
--- NOTE | 2017-11-30 16:43 | PRG ---
DATE OF SERVICE: 11/30/2017 SUBJECTIVE: Ms. Adams is sleeping most of the time. She did cooperate, trying to swallow some medi cine earlier today. She is off pressors. She is being transferred out of the critical care unit. OBJECTIVE: LUNGS: Clear. HEART: Regular rhythm. ABDOMEN: Soft. LABORATORY DATA: There is no new lab today. Her daughter came up to check on her when she arrived up on the 4th floor. She informed the nurses t hat her mother did not recognize her and she might be back tomorrow. She did not stay more than a co uple of minutes. IMPRESSION: 1. Advanced dementia, decompensated. 2. Urinary tract infection with Proteus and staghorn calculus, I cannot find whether any blood cultu res were done this admission, so I can determine whether or not she is bacteremic. 3. Intravascular volume depletion with acute on chronic kidney disease. There is actually nothing urologist can do for her from the standpoint of the calculous. I explained that to the urologist who is on-call and explained that there is no reason for her to come in to do a consult on this problem at this time. She will be transferred out of the critical care unit for ongoing care and comfort measures. Placeme nt with hospice would be the next step if she survives 24-48 hours.
--- NOTE | 2017-11-30 18:40 | PDOC.CTH ---
Cardiology Progress Note - Subjective She is minimally responsive. No new issues. - Objective Vital Signs Temp Pulse Resp BP Pulse Ox 11/30/17 16:24 97.6 F 75 18 108/69 92 L 11/30/17 12:36 97.4 F L 86 18 93 L 11/30/17 08:00 98.0 F 85 17 100 Admit Weight 87 lb Weight 100 lb 3.2 oz 11/29/17 11/30/17 12/01/17 06:59 06:59 06:59 Intake Total 1826 3002.3 1061 Output Total 125 1120 429 Balance 1701 1882.3 632 - Physical Examination General/Neuro: other: (Non verbal.) Neck: no JVD present Lungs: unlabored respirations Heart: RRR Abdomen: NT/ND Extremities: other: (no edema.) - Labs Result Diagrams: 11/29/17 07:52 11/29/17 07:52 Troponin/CKMB CK-MB (CK-2) 8.5 ng/mL (0-6.6) H* 11/27/17 11:35 Troponin I 11.443 ng/mL (< 0.028) H* 11/27/17 17:36 - Assessment/Plan 1. Advanced dementia 2. UTI 3. S/P Inferior and anteiror IA 4. Severe LV dysfunction EF at 20-25%. 5. Hyperkalemia CKD stage IV PLAN: - Conitnue supportive care. - She is DNR/DNI at this point and I think this is very reasonable. - Would not escalate therapy for IA at this time except to continue current meds.
--- NOTE | 2017-11-30 19:38 | CON ---
DATE OF CONSULTATION: 11/30/2017. REASON FOR CONSULTATION: Consultation requested for UTI sepsis and right staghorn. HISTORY OF PRESENT ILLNESS: The patient is an 86-year-old female who was admitted in October with an RI and in rehab until the and then discharged home, At home, she had fallen and was confused and possibly had another RI and was readmitted. She was noted to have urinary tract infection with a concern for sepsis. I am not sure why I was consulted now as opposed to October when the original diagnosis of staghorn was noted. As best I can tell, Urology was not already involved. I only have information from the chart and the doctors and nurses, as the patient is unable to correspond. PAST MEDICAL HISTORY: Tremor, atrial fibrillation, malnutrition, chronic back pain, hypertension, asthma, anxiety, and depression. PAST SURGICAL HISTORY: Left ORIF of the hip and back surgery. OBSTETRIC/GYNECOLOGY HISTORY: Significant for hysterectomy. MEDICATIONS: Include Abilify, Klonopin, Colace, Avapro, paroxetine, MiraLax, Topamax, and potassium. REVIEW OF SYSTEMS: From the chart, no reported lower urinary tract symptoms, just the fall and disorientation. I am not aware of any significant constipation, diarrhea, nausea, vomiting, nor significant cough or reports of chest pain. SOCIAL HISTORY: She does not smoke, drink, or use drugs. FAMILY HISTORY: Significant for dad of colon cancer. I am not aware about her mother. ALLERGIES: Multiple, I doubt all of which are actually allergies, but rather intolerances. LABORATORY DATA: Reveal a white count of 19.3, anemia of 8.4 and 26.7. BUN and creatinine are 98 and 1.79, previously it had been 1.37 and then 0.64, her probable baseline. Her urinalysis revealed too numerous to count wbc's, too numerous to count rbc's, 4+ bacteria, and 0-3 squamous cells with culture Proteus. A culture from October also showed Proteus. A urinalysis from 2015 showed blood only and then there was a prior infection noted in 06/2016 and culture was negative. CT scan from 10/18/2017 was reviewed with contrast showing a right staghorn filling the entire renal collecting system with no obvious hydro, possibly mild in the upper and lower pole, but nothing significant. No other stones noted. Normal bladder and a huge rectum full of stool. There is no upper tract imaging from this day. PHYSICAL EXAMINATION: VITAL SIGNS: Temperature is 97.4, heart rate 86, blood pressure 107/58, satting 93% on O2 with a respiratory rate of 18. NEUROLOGIC: She opens her eyes upon voice command, but otherwise cannot follow any commands nor she withdrawing to pain. Her pupils seemed to be fixed at mid dilated level. LUNGS: Her breath is intermittently labored. She had blood-tinged sputum draining from dural on her chest. It is hard to distinguish breath sounds, given the usual minimal inspiration. CARDIOVASCULAR: Regular rate and rhythm. ABDOMEN: Soft, fully distended with normoactive bowel sounds. EXTREMITIES: There was no obvious lower extremity edema. GENITOURINARY: [place] catheter was draining yellow urine and for the last output , it had gone down from 1120 to 230 for the shift. ASSESSMENT AND PLAN: An 86-year-old female with urinary tract infection related to Proteus and a known right staghorn calculus. In speaking with the nurse and treating physicians, the patient was recently made DNR and there was significant concern that she would not tolerate any sort of intervention or procedure at this time. I agree that treating her staghorn is unlikely to be helpful or possible at this time. If she has significant hydronephrosis, then a stent might be helpful, but then ultimately there would not be much more to do beyond that. As she probably would not tolerate anything more invasive and then be committed to changing the stent out periodically if hydronephrosis were documented in the first place. So, at this time, I agree with the Rocephin, which she is on. If at some point, she is more stable or a better candidate for any sort of intervention, then I'd repeat imaging to assess for hydronephrosis and possibly intervene if that documented and desired. MAE
[2017-11-30] MEDS: cefTRIAXone\\ROCEPHIN 1 GM, Syringe 0.4 ML in Sterile Water 9.6 ML SLOW IVP SCH (20:26)
[2017-12-01] MEDS: Albumin 25% 25 GM/100 ML BOT IVPB SCH ×4 (05:45→23:29)
[2017-12-01] MEDS: Dextrose 5 %-0.45 % NaCl 1,000 ML IV SCH ×3 (05:46→19:34)
[2017-12-01] MEDS: Multivitamin W/ Minerals 1 TAB PO SCH (08:10)
[2017-12-01] MEDS: Famotidine 20 MG TAB PO SCH (08:10)
[2017-12-01] MEDS: Docusate 100 MG CAP PO SCH (08:10)
[2017-12-01] MEDS: Polyethylene Glycol 3350 17 GM Packet PO SCH (08:15)
[2017-12-01] MEDS: Topiramate 100 MG TAB PO SCH ×2 (08:17→19:32)
--- NOTE | 2017-12-01 09:52 | PDOC.PN ---
- Subjective Encounter Start Date: 12/01/17 Encounter Start Time: 07:30 pt does not communicate, she is stable vitals cordon, no fever Patient seen and examined. No overnight events - Objective Resuscitation Status: Resuscitation Status DNR:Do Not Resuscitate MAR Reviewed: Yes Vital Signs & Weight: Vital Signs (12 hours) Temp Pulse Resp BP Pulse Ox 12/01/17 08:00 97.6 F 87 20 99/63 98 12/01/17 07:42 98.1 F 87 18 Weight Admit Weight 87 lb Weight 100 lb 3.2 oz Most Recent Monitor Data Heart Rate from ECG 88 NIBP 107/58 NIBP BP-Mean 65 Respiration from ECG 17 SpO2 92 I&O: 11/30/17 12/01/17 12/02/17 06:59 06:59 06:59 Intake Total 3002.3 1061 Output Total 1120 649 Balance 1882.3 412 Result Diagrams: 11/29/17 07:52 11/29/17 07:52 Phys Exam - Physical Examination Constitutional: NAD HEENT: PERRLA, moist MMs, sclera anicteric Neck: no JVD, supple Respiratory: no wheezing, no rales, no rhonchi reduced air entry Cardiovascular: RRR, no significant murmur, no rub Gastrointestinal: soft, non-tender, no distention, positive bowel sounds Musculoskeletal: no edema, pulses present Neurological: moves all 4 limbs Lymphatic: no nodes Deviation from normal: flat affect Skin: no rash, normal turgor Dx/Plan (1) Septic shock Code(s): A41.9 - SEPSIS, UNSPECIFIED ORGANISM; R65.21 - SEVERE SEPSIS WITH SEPTIC SHOCK Status: Resolved (2) Acute kidney failure Status: Acute Comment: due to sepsis (3) Acute liver failure Status: Acute Qualifiers: Hepatic coma status: without hepatic coma Qualified Code(s): K72.00 - Acute and subacute hepatic failure without coma Comment: due to sepsis and hypoperfusion (4) Coagulopathy Status: Acute (5) Encephalopathy acute Code(s): G93.40 - ENCEPHALOPATHY, UNSPECIFIED Status: Acute (6) Non-ST elevation myocardial infarction (NSTEMI), type 2 Code(s): I21.A1 - MYOCARDIAL INFARCTION TYPE 2 Status: Acute Comment: due to demand ischemia (7) UTI (urinary tract infection) Status: Acute Comment: complicated, with staghorn calculi (8) Anxiety and depression Code(s): F41.9 - ANXIETY DISORDER, UNSPECIFIED; F32.9 - MAJOR DEPRESSIVE DISORDER, SINGLE EPISODE, UNSPECIFIED Status: Chronic (9) CAD (coronary artery disease) Code(s): I25.10 - ATHSCL HEART DISEASE OF [place] CORONARY ARTERY W/O ANG PCTRS Status: Chronic (10) Dementia Code(s): F03.90 - UNSPECIFIED DEMENTIA WITHOUT BEHAVIORAL DISTURBANCE Status: Chronic (11) Paroxysmal atrial fibrillation Code(s): I48.0 - PAROXYSMAL ATRIAL FIBRILLATION Status: Chronic (12) Protein-calorie malnutrition, severe Code(s): E43 - UNSPECIFIED SEVERE PROTEIN-CALORIE MALNUTRITION Status: Chronic (13) Sacral decubitus ulcer, stage III Code(s): L89.153 - PRESSURE ULCER OF SACRAL REGION, STAGE 3 Status: Chronic (14) Severe muscle deconditioning Code(s): R29.898 - OTH SYMPTOMS AND SIGNS INVOLVING THE MUSCULOSKELETAL SYSTEM Status: Chronic Comment: (15) Staghorn calculus Code(s): N20.0 - CALCULUS OF KIDNEY Status: Chronic - Plan cont current plan of care, continue antibiotics * today will check her all routine labs. * I tried to call her daughter on phone but no response, will update condition later * prognosis is poor * continue rocephin * will reduce IVF at 125 ml per hour * she may need hospice on discharge * medication reviewed as below * symptomatic treatment Review of Systems - Review of Systems Other: unable to review due to her cognitive status - Medications/Allergies Allergies/Adverse Reactions: Allergies Allergy/AdvReac Type Severity Reaction Status Date / Time codeine Allergy Verified 11/27/17 20:45 iodine Allergy Verified 11/27/17 20:45 levofloxacin Allergy Verified 11/27/17 20:49 meperidine HCl [From Demerol] Allergy Verified 11/27/17 20:49 morphine Allergy Verified 11/27/17 20:49 Penicillins Allergy Verified 11/27/17 20:45 Sulfa (Sulfonamide Allergy Verified 11/27/17 20:45 Antibiotics) Medications: Current Medications Acetaminophen (Tylenol) 650 mg PO Q4H PRN PRN Reason: Headache/Fever or Pain Al Hydroxide/Mg Hydroxide (Maalox) 30 ml PO Q6H PRN PRN Reason: Heartburn or Indigestion Albumin Human (Albumin 25%) 25 gm IVPB Q6HR [facility] Stop: 12/02/17 12:01 Last Admin: 12/01/17 05:45 Dose: 25 gm Albuterol/Ipratropium (Duoneb) 3 ml NEB [id number] PRN PRN Reason: SOB &/or Wheezing Artificial Tears (Tears Naturale) 0 drop EA EYE PRN PRN PRN Reason: Dry Eyes Aspirin (Aspirin Chewable) 81 mg PO DAILY [facility] Last Admin: 12/01/17 08:10 Dose: 81 mg Clonazepam (Klonopin) 0.5 mg PO Q8H PRN PRN Reason: Anxiety/Restlessness/Sleep Last Admin: 11/27/17 17:42 Dose: 0.5 mg Docusate Sodium (Colace) 200 mg PO DAILY [facility] Last Admin: 12/01/17 08:10 Dose: 200 mg Famotidine (Pepcid) 20 mg PO 0900 [facility] Last Admin: 12/01/17 08:10 Dose: 20 mg Guaifenesin (Robitussin Sf) 200 mg PO Q4H PRN PRN Reason: Cough Hydralazine HCl (Apresoline) 10 mg SLOW IVP Q4H PRN PRN Reason: Systolic BP > 180 Dextrose/Sodium Chloride (D5 1/2 Ns) 1,000 mls @ 150 mls/hr IV .Q6H40M [facility] Last Admin: 12/01/17 05:46 Dose: 1,000 mls Ceftriaxone Sodium 1 gm/ (Syringe 0.4 ml/ Sterile Water) 10 mls @ 120 mls/hr SLOW IVP 2100 [facility] Last Admin: 11/30/17 20:26 Dose: 10 mls Iron/Minerals/Multivitamins (Theragran M) 1 tab PO DAILY [facility] Last Admin: 12/01/17 08:10 Dose: 1 tab Loperamide HCl (Imodium) 2 mg PO PRN PRN PRN Reason: Diarrhea/Loose Stools Loratadine (Claritin) 10 mg PO DAILYPRN PRN PRN Reason: Sinus Symptoms Magnesium Hydroxide (Milk Of Magnesium) 30 ml PO DAILYPRN PRN PRN Reason: Constipation Methylprednisolone Sodium Succinate (Solu-Medrol) 20 mg IVP DAILY [facility] Last Admin: 12/01/17 08:17 Dose: 20 mg Mineral Oil/White Petrolatum (Eucerin Cream) 0 gm TOP BIDPRN PRN PRN Reason: Dry Skin Nitroglycerin (Nitrostat) 0.4 mg SL Q5MIN PRN PRN Reason: Chest Pain Ondansetron HCl (Zofran Odt) 4 mg PO Q6H PRN PRN Reason: Nausea/Vomiting Ondansetron HCl (Zofran) 4 mg IVP Q6H PRN PRN Reason: Nausea/Vomiting Phenol (Chloraseptic [place] 180 Ml Bot) 0 ml PO PRN PRN PRN Reason: Sore Throat Polyethylene Glycol (Miralax) 17 gm PO DAILY [facility] Last Admin: 12/01/17 08:15 Dose: 17 gm Polyethylene Glycol (Miralax) 17 gm PO DAILY PRN PRN Reason: Constipation Senna (Senokot) 2 tab PO HSPRN PRN PRN Reason: Constipation Sodium Chloride ([place] Nasal [place] 0.65%) 0 ml EA NARE QIDPRN PRN PRN Reason: Nasal Congestion Topiramate (Topamax) 50 mg PO BID [facility] Last Admin: 12/01/17 08:17 Dose: Not Given
[2017-12-01 10:18] LABS: INR-International Normal Ratio 1.8; Prothrombin Time 20.9 SEC (12.0-14.7)
[2017-12-01 10:21] LABS: Lactic Acid 2.4 mmol/L (0.5-2.2)
[2017-12-01 10:27] LABS: ALT (SGPT) 1592 U/L (8-55); AST (SGOT) 347 U/L (5-34); Albumin 4.5 g/dL (3.4-4.8); Alkaline Phosphatase 142 U/L (40-150); Anion Gap 13 mmol/L (10-20); BUN (Urea Nitrogen) 72 mg/dL (9.8-20.1); Bilirubin, Total 0.4 mg/dL (0.2-1.2); Calc. Creatinine Clearance 20 mL/min (70-130); Calcium 7.7 mg/dL (7.8-10.44); Carbon Dioxide 19 mmol/L (23-31); Chloride 106 mmol/L (98-107); Estimated GFR-MDRD 34; Globulin 2.3 g/dL (2.4-3.5); Glucose 215 mg/dL (83-110); Potassium 5.4 mmol/L (3.5-5.1); Protein, Total 6.8 g/dL (6.0-8.3); Sodium 133 mmol/L (136-145)
[2017-12-01 10:55] LABS: Band 3 % (5-11); Hemoglobin 8.6 g/dL (12.0-16.0); Hypochromia SLIGHT = 6-15 cells (100X) (0-5/hpf); Lymphocytes 21 % (21-51); MDiff Complete? YES; Mean Corpuscular Hemoglobin 26.4 pg (27.0-31.0); Mean Platelet Volume 9.6 fL (7.4-10.4); Monocytes 1 % (0-10); Neutrophil 75 % (42-75); Nucleated RBC 1 % (0); Platelet Count 108 thou/uL (130-400); Polychromasia SLIGHT = 2-3 cells (100X) (0-2/hpf); RBC Distribution Width 14.6 % (11.5-14.5); Red Blood Cell (RBC) Count 3.27 mill/uL (4.20-5.40); White Blood Cell (WBC) Count 19.7 thou/uL (4.8-10.8)
[2017-12-01] MEDS: cefTRIAXone\\ROCEPHIN 1 GM, Syringe 0.4 ML in Sterile Water 9.6 ML SLOW IVP SCH (19:32)
--- NOTE | 2017-12-01 21:04 | PRG ---
DATE OF SERVICE: 12/01/2017 SUBJECTIVE: Ms. Adams remains poorly responsive. Family apparently showed up for about 10 minutes and asked the nurses why she was sedated. It was explained to them that she is not sedated. She is clearly dying. OBJECTIVE: VITAL SIGNS: She is afebrile. Heart rate is 87, respiratory rate is 20. Her tidal volumes are extr aida small, probably less than 200 mL, oximetry is 98% on 2 liters and blood pressure is 99/63. LUNGS: Remarkable for mild rhonchi. HEART: Regular rhythm. ABDOMEN: Soft. LABORATORY DATA: White count 19.7, hemoglobin 8.6 and platelets 108. Electrolytes are remarkable fo r potassium of 5.4 and creatinine of 1.45 down from yesterday's 1.6. IMPRESSION: 1. Respiratory failure secondary to muscle weakness, advanced deconditioning and advanced dementia. 2. Staghorn calculus with Proteus urinary tract infection. 3. Intravascular volume depletion secondary to her dementia. PLAN: Comfort measures and support. She is not a candidate for any type of urological intervention, although Urology was consulted. She has had a myocardial infarction and has severe left ventricular systolic dysfunction. Obviously, nothing can be done for this. She even needs to go to inpatient hospice or a group home with hosp ice in my opinion.
[2017-12-02] MEDS: Albumin 25% 25 GM/100 ML BOT IVPB SCH ×2 (05:13→12:14)
[2017-12-02] MEDS: Dextrose 5 %-0.45 % NaCl 1,000 ML IV SCH (05:13)
[2017-12-02] MEDS: Multivitamin W/ Minerals 1 TAB PO SCH (09:01)
[2017-12-02] MEDS: Docusate 100 MG CAP PO SCH (09:01)
[2017-12-02] MEDS: Famotidine 20 MG TAB PO SCH (09:01)
[2017-12-02] MEDS: Polyethylene Glycol 3350 17 GM Packet PO SCH (09:01)
[2017-12-02] MEDS: Topiramate 100 MG TAB PO SCH ×2 (09:02→20:05)
--- NOTE | 2017-12-02 10:32 | PRG ---
DATE OF SERVICE: 12/02/2017 SUBJECTIVE: There were really no events over the weekend and she is nonverbal. LABORATORY DATA: Her white count did remain elevated at 19.7 when rechecked, while her potassium was improved at 5.4, and creatinine improved at 1.45. PHYSICAL EXAMINATION: Her vitals have remained stable. On physical exam, she does not open her eyes to stimulus or voice and she has agonal breathing. ASSESSMENT: This is an 86-year-old female with large staghorn and urinary tract infection on appropriate antibiotics who is near end of life from multiple organ decline and deterioration. I do not believe any further investigation or intervention would be appropriate at this time. Please call for further concerns or issues. MAE
--- NOTE | 2017-12-02 12:18 | PDOC.PN ---
- Subjective Encounter Start Date: 12/02/17 Encounter Start Time: 08:40 -: non-verbal Patient seen and examined. pt is gasping for air, she is not doing well No overnight events - Objective Resuscitation Status: Resuscitation Status DNR:Do Not Resuscitate MAR Reviewed: Yes Vital Signs & Weight: Vital Signs (12 hours) Temp Pulse Resp BP Pulse Ox 12/02/17 08:00 97.0 F L 98 20 12/02/17 07:19 97.0 F L 98 20 104/63 98 Weight Admit Weight 87 lb Weight 136 lb 6 oz Most Recent Monitor Data Heart Rate from ECG 88 NIBP 107/58 NIBP BP-Mean 65 Respiration from ECG 17 SpO2 92 I&O: 12/01/17 12/02/17 12/03/17 06:59 06:59 06:59 Intake Total 1061 1500 Output Total 649 200 Balance 412 1300 Result Diagrams: 12/01/17 10:02 12/01/17 10:02 Phys Exam - Physical Examination Constitutional: NAD gasping for air HEENT: PERRLA, sclera anicteric dry MM Neck: no JVD, supple Respiratory: no wheezing, no rhonchi reduce air entry Cardiovascular: RRR, no significant murmur, no rub Gastrointestinal: soft, no distention, positive bowel sounds Musculoskeletal: no edema unable to assess Lymphatic: no nodes Deviation from normal: unable to assess Dx/Plan (1) Septic shock Code(s): A41.9 - SEPSIS, UNSPECIFIED ORGANISM; R65.21 - SEVERE SEPSIS WITH SEPTIC SHOCK Status: Resolved (2) Acute kidney failure Status: Acute Comment: due to sepsis (3) Acute liver failure Status: Acute Qualifiers: Hepatic coma status: without hepatic coma Qualified Code(s): K72.00 - Acute and subacute hepatic failure without coma Comment: due to sepsis and hypoperfusion (4) Coagulopathy Status: Acute (5) Encephalopathy acute Code(s): G93.40 - ENCEPHALOPATHY, UNSPECIFIED Status: Acute (6) Non-ST elevation myocardial infarction (NSTEMI), type 2 Code(s): I21.A1 - MYOCARDIAL INFARCTION TYPE 2 Status: Acute Comment: due to demand ischemia (7) UTI (urinary tract infection) Status: Acute Comment: complicated, with staghorn calculi (8) Anxiety and depression Code(s): F41.9 - ANXIETY DISORDER, UNSPECIFIED; F32.9 - MAJOR DEPRESSIVE DISORDER, SINGLE EPISODE, UNSPECIFIED Status: Chronic (9) CAD (coronary artery disease) Code(s): I25.10 - ATHSCL HEART DISEASE OF [place] CORONARY ARTERY W/O ANG PCTRS Status: Chronic (10) Dementia Code(s): F03.90 - UNSPECIFIED DEMENTIA WITHOUT BEHAVIORAL DISTURBANCE Status: Chronic (11) Paroxysmal atrial fibrillation Code(s): I48.0 - PAROXYSMAL ATRIAL FIBRILLATION Status: Chronic (12) Protein-calorie malnutrition, severe Code(s): E43 - UNSPECIFIED SEVERE PROTEIN-CALORIE MALNUTRITION Status: Chronic (13) Sacral decubitus ulcer, stage III Code(s): L89.153 - PRESSURE ULCER OF [place]CR[place] REG[place], STAGE 3 Status: Chronic (14) Severe muscle deconditioning Code(s): R29.898 - OTH SYMPTOMS AND SIGNS INVOLVING THE MUSCULOSKELETAL SYSTEM Status: Chronic Comment: (15) Staghorn calculus Code(s): N20.0 - CALCULUS OF KIDNEY Status: Chronic (16) Systolic dysfunction Code(s): I51.9 - HEART DISEASE, UNSPECIFIED Status: Acute - Plan cont current plan of care, continue antibiotics, social work job titles * DC Albumin * DC IVF * continue rocephin * continue solumedrol * her prognosis is very poor * will consider hospice for inpt hospice transfer if available * medication reviewed as below * symptomatic treatment. Review of Systems - Review of Systems Other: unable to review as pt is nonverbal, - Medications/Allergies Allergies/Adverse Reactions: Allergies Allergy/AdvReac Type Severity Reaction Status Date / Time codeine Allergy Verified 11/27/17 20:45 iodine Allergy Verified 11/27/17 20:45 levofloxacin Allergy Verified 11/27/17 20:49 meperidine HCl [From Demerol] Allergy Verified 11/27/17 20:49 morphine Allergy Verified 11/27/17 20:49 Penicillins Allergy Verified 11/27/17 20:45 Sulfa (Sulfonamide Allergy Verified 11/27/17 20:45 Antibiotics) Medications: Current Medications Acetaminophen (Tylenol) 650 mg PO Q4H PRN PRN Reason: Headache/Fever or Pain Al Hydroxide/Mg Hydroxide (Maalox) 30 ml PO Q6H PRN PRN Reason: Heartburn or Indigestion Albuterol/Ipratropium (Duoneb) 3 ml NEB [id number] PRN PRN Reason: SOB &/or Wheezing Artificial Tears (Tears Naturale) 0 drop EA EYE PRN PRN PRN Reason: Dry Eyes Aspirin (Aspirin Chewable) 81 mg PO DAILY [facility] Last Admin: 12/02/17 09:01 Dose: Not Given Clonazepam (Klonopin) 0.5 mg PO Q8H PRN PRN Reason: Anxiety/Restlessness/Sleep Last Admin: 11/27/17 17:42 Dose: 0.5 mg Docusate Sodium (Colace) 200 mg PO DAILY [facility] Last Admin: 12/02/17 09:01 Dose: Not Given Famotidine (Pepcid) 20 mg PO 0900 [facility] Last Admin: 12/02/17 09:01 Dose: Not Given Guaifenesin (Robitussin Sf) 200 mg PO Q4H PRN PRN Reason: Cough Hydralazine HCl (Apresoline) 10 mg SLOW IVP Q4H PRN PRN Reason: Systolic BP > 180 Ceftriaxone Sodium 1 gm/ (Syringe 0.4 ml/ Sterile Water) 10 mls @ 120 mls/hr SLOW IVP 2100 [facility] Last Admin: 12/01/17 19:32 Dose: 10 mls Iron/Minerals/Multivitamins (Theragran M) 1 tab PO DAILY [facility] Last Admin: 12/02/17 09:01 Dose: Not Given Loperamide HCl (Imodium) 2 mg PO PRN PRN PRN Reason: Diarrhea/Loose Stools Loratadine (Claritin) 10 mg PO DAILYPRN PRN PRN Reason: Sinus Symptoms Magnesium Hydroxide (Milk Of Magnesium) 30 ml PO DAILYPRN PRN PRN Reason: Constipation Methylprednisolone Sodium Succinate (Solu-Medrol) 20 mg IVP DAILY [facility] Last Admin: 12/02/17 08:59 Dose: 20 mg Mineral Oil/White Petrolatum (Eucerin Cream) 0 gm TOP BIDPRN PRN PRN Reason: Dry Skin Nitroglycerin (Nitrostat) 0.4 mg SL Q5MIN PRN PRN Reason: Chest Pain Ondansetron HCl (Zofran Odt) 4 mg PO Q6H PRN PRN Reason: Nausea/Vomiting Ondansetron HCl (Zofran) 4 mg IVP Q6H PRN PRN Reason: Nausea/Vomiting Phenol (Chloraseptic [place] 180 Ml Bot) 0 ml PO PRN PRN PRN Reason: Sore Throat Polyethylene Glycol (Miralax) 17 gm PO DAILY [facility] Last Admin: 12/02/17 09:01 Dose: Not Given Polyethylene Glycol (Miralax) 17 gm PO DAILY PRN PRN Reason: Constipation Senna (Senokot) 2 tab PO HSPRN PRN PRN Reason: Constipation Sodium Chloride ([place] Nasal [place] 0.65%) 0 ml EA NARE QIDPRN PRN PRN Reason: Nasal Congestion Topiramate (Topamax) 50 mg PO BID [facility] Last Admin: 12/02/17 09:02 Dose: Not Given
[2017-12-02] MEDS: cefTRIAXone\\ROCEPHIN 1 GM, Syringe 0.4 ML in Sterile Water 9.6 ML SLOW IVP SCH (20:33)
[2017-12-03 01:00] VITALS: BP 127/81; TEMP 98.2
--- NOTE | 2017-12-04 | DS ---
DATE OF ADMISSION: 11/27/2017 DATE OF EXPIRATION: 12/03/2017 FINAL DIAGNOSES: 1. Septic shock, likely secondary to urinary tract infection with Proteus. 2. Acute kidney injury. 3. Acute hepatic failure secondarily to #1. 4. Advanced dementia. 5. Status post mechanical fall with closed head injury. 6. Severe protein calorie malnutrition. 7. Sacral decubitus stage III. 8. Chronic staghorn calculus of the kidney. 9. Hyperkalemia. 10. Lactic acidosis. 11. Coagulopathy secondary to #1. 12. Non-ST elevation myocardial infarction secondary to demand ischemia due to septic shock. 13. Cardiomyopathy with ejection fraction of 20-25%. CONSULTATIONS: Dr. Lagunas with Cardiology service. Dr. Pizarro with Pulmonology Service. Dr. Viviana olson with GI service. Dr. Melendez with the Urology Service. PERTINENT LABORATORY AND X-RAY FINDINGS: Potassium ranged between 5.1-5.9, creatinine ranged between 1.14-1.79 with estimated GFR ranging between 27-45. AST ranged between 246-2052. ALT ranged betwee n 421-2302. Lactic acid level ranged between 2.3-2.4, troponin I ranged between 9.79-11.44. CBC daya wed a white blood cell count ranging between 14.1-20.3, hemoglobin ranged between 8.4-9.6. PT 20.9, INR 1.8. Urine culture dated 11/27/2017 showed greater than 100,[address] of the brain without contrast dated 11/27/2017 showed no acute intracranial process. CT of the ce rvical spine dated 11/27/2017 showed no acute process. Portable chest x-ray dated 11/27/2017 showed no acute cardiopulmonary process. A 2D transthoracic echocardiogram dated 11/28/2017 showed ejection fraction of 20-25%. Septal and anterior lateral akinesis. Inferior posterior hypokinesis. Moderat e left atrial enlargement. Moderate tricuspid valve regurgitation. Abdominal ultrasound dated 11/27 showed right pleural fluid. No acute hepatic abnormality noted. Portable chest x-ray dated showed increased bilateral perihilar interstitial densities. Mild chronic lung changes. Sm all right pleural effusion noted. HOSPITAL COURSE: Patient was initially admitted after presenting with sepsis syndrome with encephalo pathic changes and altered mentation. Patient with multiorgan dysfunction including acute kidney inj ury as well as evidence of non-ST elevation myocardial infarction in the context of known cardiomyopa thy with ejection fraction of 20-25%. The patient was initially placed on broad spectrum antibiotic therapy after concern for possible infectious process. The patient was also given intravenous fluids after concern for volume depletion. Patient underwent general sepsis protocol with urine culture sh owing greater than 100,000 colonies of Proteus mirabilis. Patient with prior history of staghorn sajan culus evaluated by the Urology service with recommendations for intravenous fluids and IV antibiotic therapy. No specific surgical intervention was recommended. The patient was DO NOT RESUSCITATE code status at the time of admission and remained in guarded clinical state throughout the hospital cours e. The patient continued to clinically decline with worsening parameters in regards to renal functio n and hepatic failure. The patient was evaluated by the Palliative Care Service and given general leblanc pportive measures. The patient continued clinical decline despite aggressive intervention and d on 12/03/2017 at 3:50 a.m. The patient's daughter was notified and decision affairs coordinated di sposition of the body.
--- NOTE | 2017-12-07 21:51 | EKG ---
Test Reason : Blood Pressure : / mmHG Vent. Rate : 114 BPM Atrial Rate : 114 BPM P-R Int : 130 ms QRS Dur : 088 ms QT Int : 324 ms P-R-T Axes : 072 175 055 degrees QTc Int : 446 ms Sinus tachycardia Possible Left atrial enlargement Possible Right ventricular hypertrophy Possible Inferior infarct , age undetermined Cannot rule out Anterior infarct , age undetermined Abnormal ECG Confirmed by LEDY XIONG ([id number]), health editor POLO FLORES ([id number]) on 12/07/2017 9:50:11 PM Referred By: Confirmed By:LEDY XIONG
--- NOTE | 2017-12-07 21:51 | EKG ---
Test Reason : Blood Pressure : / mmHG Vent. Rate : 111 BPM Atrial Rate : 111 BPM P-R Int : 114 ms QRS Dur : 078 ms QT Int : 334 ms P-R-T Axes : 081 138 062 degrees QTc Int : 454 ms Sinus tachycardia Possible Left atrial enlargement Right ventricular hypertrophy Cannot rule out Anteroseptal infarct , age undetermined Inferior injury pattern ACUTE PA / STEMI Abnormal ECG Confirmed by LEDY XIONG ([id number]), photograph editor POLO FLORES ([id number]) on 12/07/2017 9:50:10 PM Referred By: Confirmed By:LEDY XIONG
== END 2017-12-03 03:50 | disposition expired | DRG 871 ==
LOC: ERS 10:40 → ERHOLD 12:52 → EEVIPCON 12:52 → 2NO 16:18 → CCU 11-28 17:57 → T4-A 11-30 12:26
PROVIDERS: ADMIT Internal Medicine; ATTEND Internal Medicine
PROC: 02HV33Z Insertion of Infusion Device into Superior Vena Cava, Percutaneous Approach (ICD-10-PCS; principal; 2017-11-28)
PROC: B548ZZA Ultrasonography of Superior Vena Cava, Guidance (ICD-10-PCS; 2017-11-28)
DX: A41.4 Sepsis due to anaerobes (principal); I21.A1 Myocardial infarction type 2; J96.90 Respiratory failure, unspecified, unspecified whether with hypoxia or hypercapnia; K72.00 Acute and subacute hepatic failure without coma; E43 Unspecified severe protein-calorie malnutrition; R65.21 Severe sepsis with septic shock; D68.9 Coagulation defect, unspecified; G93.41 Metabolic encephalopathy; E87.2 Acidosis; L89.153 Pressure ulcer of sacral region, stage 3; N18.4 Chronic kidney disease, stage 4 (severe); N17.9 Acute kidney failure, unspecified; N39.0 Urinary tract infection, site not specified; Z68.1 Body mass index [BMI] 19.9 or less, adult; K92.1 Melena; R64 Cachexia; Z51.5 Encounter for palliative care; I48.0 Paroxysmal atrial fibrillation; F03.90 Unspecified dementia, unspecified severity, without behavioral disturbance, psychotic disturbance, mood disturbance, and anxiety; N20.0 Calculus of kidney; E87.5 Hyperkalemia; I12.9 Hypertensive chronic kidney disease with stage 1 through stage 4 chronic kidney disease, or unspecified chronic kidney disease; Z66 Do not resuscitate; F32.9 Major depressive disorder, single episode, unspecified; F41.9 Anxiety disorder, unspecified; J45.909 Unspecified asthma, uncomplicated; E86.9 Volume depletion, unspecified; I25.5 Ischemic cardiomyopathy; S00.83XA Contusion of other part of head, initial encounter; W06.XXXA Fall from bed, initial encounter; R25.1 Tremor, unspecified; I25.2 Old myocardial infarction
CPT/HCPCS: 36415; 36416; 51701; 70450; 71045; 72125; 76705; 80053; 80061; 81003; 81015; 82553; 83605; 84484; 85025; 85610; 85730; 87077; 87086; 87186; 93005; 93306; 96361; 96374; A4216; A4353; G8978-GP-CM; G8979-GP-CK; G8987-GO-CN; G8988-GO-CL; G8996-GN-CJ; G8997-GN-CJ; J0696; J1720; J2405; J2920; J7042; J7050; P9047